=== PATIENT | female | born 1970 | race Caucasian/White ===

== ENCOUNTER 2021-11-02 15:48 | Outpatient (REF) | payer OTHER, SELFPAY | END 2021-11-02 15:49 | disposition home or self-care (01) | LOC: HO.LAB 15:48 | PROVIDERS: Visit Provider Internal Medicine | DX: Z20.822 Contact with and (suspected) exposure to COVID-19 (principal) | CPT/HCPCS: C9803; U0003; U0005 ==

== ENCOUNTER 2024-01-06 17:03 | Emergency (ER) | payer OTHER, SELFPAY ==
[2024-01-06 17:39] VITALS: BP 147/99; BP 154/110; PULSE 80; PULSE 81; RESP 16; TEMP 36.9; O2SAT 96; BMI 33.9
--- NOTE | 2024-01-06 17:44 | ED.GENADULT ---
HPI - General Adult General Chief complaint: Neuro Symptoms/Deficit Stated complaint: headache,migraines,nausea x1wk Time Seen by Provider: 01/06/24 23:12 Source: patient Mode of arrival: EMS History of Present Illness HPI narrative: This is a pleasant 53-year-old female without significant past medical history other than migraines and endorses increase level of stress at work and states that over the past week she has had intermittent episodes of headaches with significant left eye twitching but denies any visual or speech changes denies any numbness/tingling/unilateral weakness. Patient reports that during the headaches she has experienced some nausea and she routinely takes magnesium as well as ibuprofen for her underlying migraine diagnosis and states that the eye twitching is not something that is previously been associated with her migraines. She otherwise denies any fever, chills, vomiting, abdominal discomfort or urinary symptoms. Patient also reports concerns regarding the blood at the lower portion of her left orbit. Related Data Allergies Allergy/AdvReac Type Severity Reaction Status Date / Time No Known Allergies Allergy Verified 01/06/24 17:45 Review of Systems Review of Systems: Pertinent positives and negatives as stated in HPI PMFSH Past Medical History Source: nursing notes reviewed Social History Social History Advance Directives: No Advance Directives Information Provided: Yes Physical Exam ED Vital Signs: Vital Signs - 24 hr 01/06/24 17:39 Temperature 98.4 F Pulse Rate 81 Respiratory Rate 16 Blood Pressure 147/99 H Pulse Oximetry 96 Oxygen Delivery Method Room Air BMI result Body Mass Index 33.9 VITAL SIGNS: Reviewed. GENERAL: Elevated BMI, Well developed, well nourished, in no acute distress. HEAD: Normocephalic/atraumatic EYES: PERRLA, EOMI, small subconjunctival hemorrhage at low lateral aspect of left orbit EARS: Ext canals without abnormality, TMs non-bulging and non-erythematous NOSE: Nares patent bilateral OROPHARYNX: no oral lesions noted, posterior pharynx clear and non-erythematous without noted tonsillar enlargement/erythema/exudates NECK: Supple, no adenopathy LUNGS: Normal breath sounds. No adventitious sounds or accessory muscle use. SpO2<96> CARDIOVASCULAR: Regular rate and rhythm without noted murmurs ABDOMEN: Soft, non-tender, non-distended with bowel sounds. MUSCULOSKELETAL: No tenderness, deformities, or effusions noted on gross inspection. EXTREMITIES: No cyanosis, clubbing or edema. SKIN: Inspection of the skin reveals no rashes NEUROLOGIC: Alert and oriented x 4. Strength and sensation to light touch were grossly intact x 4, no facial asymmetry, no pronator drift, cranial nerves 2-12 are grossly intact. Course Course Course Narrative: RME performed by Darshana Spears PA-C. Patient is a 53 year old assigned female at presenting to the emergency department with left sided facial twitching / slight drooping x days. Detailed physical exam and review of systems are deferred to the pole peeling machine operator. Labs and imaging ordered. Patient placed back in the waiting room pending room availability and results. Medical Decision Making Medical Decision Making MDM Narrative: 53-year-old female with history and clinical presentation, DDX: Migraine, tension headache, idiopathic eyelid twitching, subconjunctival hemorrhage, no focal deficits and history not concerning for neurologic deficits, viral illness, life stressors. I reviewed all investigations and understand that the triage note was neuro is intact patient has slight left-sided droop , I do not appreciate any left-sided facial droop which would not fall under the statements of neuro does being intact. Hematologic indices are negative for leukocytosis/left shift/anemia or thrombocytopenia. Coagulation studies within normal range. Chemistry indices are without any derangement, notably high sensitivity troponin is undetectable, TSH-1.24. Urinalysis demonstrates the presence of wbc's, appears to be a clean sample and also is notable for 1+ bacteria but nitrite and leukocyte esterase negative. Patient has no complaints abdominal/flank discomfort and also denies any urinary symptoms. At this time, I will defer any antibiotics and instead requested patient follow-up on urine culture either through her primary care doctor or through the patient portal. My interpretation is that patient is experiencing idiopathic eye twitching that many times can be associated with increased levels of stress which patient has endorsed in her history. I do not find any symptoms related her history or clinical findings to suggest TIA/CVA. I did explain to the patient that subconjunctival hemorrhages can occur and I strongly recommend that you follow-up with your primary care doctor at her earliest convenience. I will offer the patient Tylenol and also do viral testing. Viral testing is negative for COVID-19/influenza. All results and findings discussed with the patient at bedside she is otherwise discharged home in stable condition and strongly encouraged to follow-up with primary care doctor at her earliest convenience. Differential Diagnosis Differential Diagnoses: The differential diagnosis associated with the presentation includes Please see the discussion above Admission/Observation Consideration of admission/observation: Escalation of care including admission/observation considered Please see the discussion above Lab Data MDM Lab Attestation statement: I reviewed the patient's lab results. Please see the discussion above 01/06/24 18:31 01/06/24 18:31 Labs: Lab Results 01/06/24 01/07/24 Range/Units 18:31 00:00 WBC 8.1 (4.8-10.8) X10*3/uL RBC 4.64 (4.20-5.50) X10*6/uL Hgb 13.1 (12.0-16.0) g/dl Hct 39.5 (37.0-47.0) % MCV 85.1 (80.0-98.0) fL MCH 28.2 (27.0-33.0) pg MCHC 33.2 (31.0-35.0) g/dl RDW 13.3 (11.0-16.0) % Plt Count 297 (160-400) X10*3/uL MPV 9.3 L (9.4-12.3) fL Immature Gran % (Auto) 0.2 (0.0-0.4) % Neut % (Auto) 62.0 (45-73) % Lymph % (Auto) 31.6 (20-40) % [place] % (Auto) 5.3 (2-11) % Eos % (Auto) 0.5 (0-4) % Baso % (Auto) 0.4 (0-2) % Lymph # (Auto) 2.6 (1.2-4.9) X10*3/uL [place] # (Auto) 0.4 (0.1-1.2) X10*3/uL Eos # (Auto) 0.0 (0.0-0.4) X10*3/uL Baso # (Auto) 0.0 (0.0-0.2) X10*3/uL Abs Immat Gran (auto) 0.02 (0.00-0.03) X10*3/uL Absolute Neuts (auto) 5.0 (2.0-8.3) x10*3/uL Absolute Nucleated RBC 0.000 (0.0-0.012) X10*3/uL Nucleated RBC % (auto) 0.0 (0.0-0.2) /100WBC PT 13.2 (11.1-13.3) SEC INR 1.1 (0.9-1.1) APTT 29.2 (26.0-36.8) SEC Sodium 137 (135-145) mmol/L Potassium 3.4 (3.3-5.1) mmol/L Chloride 103 (96-108) mmol/L Carbon Dioxide 23 (22-29) mmol/L Anion Gap 14 (12-20) BUN 11 (9-16) mg/dL Creatinine 0.62 (0.5-1.4) mg/dL Estim Creat Clear Calc 99.5 Estimated GFR > 60 Random Glucose 80 (60-115) mg/dL Calcium 9.6 (8.4-10.2) mg/dL Magnesium 2.0 (1.6-2.6) mg/dL Total Bilirubin 0.3 (0.0-1.0) mg/dL AST 16 (5-31) U/L ALT 22 (0-31) U/L Alkaline Phosphatase 80 (39-117) U/L Troponin I High Sens < 2.7 (<3.5-17.0) ng/L Total Protein 7.6 (6.5-8.0) g/dL Albumin 4.2 (3.5-5.0) g/dL TSH 1.24 (0.32-4.0) uIU/mL Urine Color Yellow Urine Appearance Clear Urine pH 6.5 (5.0-9.0) Ur Specific Bishop 1.010 (1.005-1.025) Urine Protein Negative (Neg-Trace) mg/dL Urine Glucose (UA) Negative (Negative) mg/dL Urine Ketones Negative (Negative) mg/dL Urine Blood Trace H (Negative) Urine Nitrite Negative (Negative) Ur Leukocyte Esterase Negative (Negative) Urine RBC 6-10 H (0-2) /HPF Urine WBC 6-10 H (0-5) /HPF Ur Squamous Epith Cells 0-2 (0-2) /HPF Urine Bacteria 1+ (None Seen) Hyaline Casts 0-2 (0-2) /LPF COVID-19 ([facility]) Negative (Negative) COVID-19 Clin Com See Note Influenza Type A ([facility]) Negative (Negative) Influenza Type B ([facility]) Negative (Negative) Influenza A & B Note See Note Independent Interpretation I performed an independent interpretation of an: EKG Interpretation: Normal sinus rhythm, HR-71, no STEMI, NE/QRS/QTC is within normal limits Chronic Conditions Patient?s care impacted by: Other Migraine Critical Care Time Critical Care Time Critical Care Time: Yes Total Critical Care Time: 30 Attestation: I personally attest to this time spent taking care of the patient. Discharge Plan Discharge Clinical Impression: Subconjunctival bleed, Eyelid twitch, Tension headache Patient Disposition: Home, Self-Care Instructions: Tension Headache (ED), Subconjunctival Hemorrhage (ED) Additional Instructions: 1. Resume all home medications as prescribed. I do recommend some form of relaxation technique throughout your work day to help deescalate the stress that you are currently undergoing. 2. Please follow-up with your primary care doctor in the next 1-2 days. Do not hesitate to return to the emergency room for any worsening or new symptoms. Referrals: Esthela Hernandez PA [Primary Care Provider] -
--- NOTE | 2024-01-06 17:46 | ECG_ITS ---
Test Reason : HEADACHE/POSS STROKE Blood Pressure : / mmHG Vent. Rate : 071 BPM Atrial Rate : 071 BPM P-R Int : 150 ms QRS Dur : 076 ms QT Int : 424 ms P-R-T Axes : 054 028 042 degrees QTc Int : 460 ms Normal sinus rhythm with sinus arrhythmia Normal ECG No previous ECGs available Referred By: Darshana Spears Electronically Signed By:Piter Mccann
[2024-01-06 18:35] LABS: MANUAL DIFF FLAG NO
[2024-01-06 18:38] LABS: Appearance Urine Clear; Basophils Percent Auto 0.4 % (0-2); Color Urine Yellow; Eosinophils Percent Auto 0.5 % (0-4); Glucose Urine UA Negative (Negative); Hematocrit 39.5 % (37.0-47.0); Hemoglobin 13.1 g/dl (12.0-16.0); Imm Gran Abs Auto 0.02 X10*3/uL (0.00-0.03); Imm Gran Pct Auto 0.2 % (0.0-0.4); Leukocyte Esterase Urine Negative (Negative); Lymphocytes Absolute Auto 2.6 X10*3/uL (1.2-4.9); Lymphocytes Percent Auto 31.6 % (20-40); Mean Corpuscular HGB Conc 33.2 g/dl (31.0-35.0); Mean Corpuscular Hemoglobin 28.2 pg (27.0-33.0); Mean Corpuscular Volume 85.1 fL (80.0-98.0); Mean Platelet Volume 9.3 fL (9.4-12.3); Monocytes Absolute Auto 0.4 X10*3/uL (0.1-1.2); Monocytes Percent Auto 5.3 % (2-11); Nitrite Urine Negative (Negative); PH 6.5 (5.0-9.0); Platelet Count 297 X10*3/uL (160-400); Red Blood Count 4.64 X10*6/uL (4.20-5.50); Red Cell Distribution Width 13.3 % (11.0-16.0); UMIC TRIGGER UACC YES; Urine Blood Trace (Negative); Urine Ketones Negative (Negative); Urine Protein Negative (Neg-Trace); White Blood Count 8.1 X10*3/uL (4.8-10.8)
[2024-01-06 18:42] LABS: INTERNATIONAL NORM RATIO 1.1 (0.9-1.1); Prothrombin Time 13.2 SEC (11.1-13.3)
[2024-01-06 18:45] LABS: Partial Thromboplastin Time 29.2 SEC (26.0-36.8)
[2024-01-06 18:51] LABS: Alanine Aminotransferase 22 U/L (0-31); Albumin Level 4.2 g/dL (3.5-5.0); Alkaline Phosphatase 80 U/L (39-117); Anion Gap 14 (12-20); Aspartate Amino Transferase 16 U/L (5-31); Bilirubin Total 0.3 mg/dL (0.0-1.0); Blood Urea Nitrogen 11 mg/dL (9-16); Calcium 9.6 mg/dL (8.4-10.2); Carbon Dioxide 23 mmol/L (22-29); Chloride 103 mmol/L (96-108); Creatinine Clr Calc Pharmacy 99.5; Estimated Glomerular Filt Rate > 60; Glucose Random 80 mg/dL (60-115); Potassium 3.4 mmol/L (3.3-5.1); Sodium 137 mmol/L (135-145); Total Protein 7.6 g/dL (6.5-8.0)
[2024-01-06 18:58] LABS: Troponin-I High Sensitivity < 2.7 ng/L (<3.5-17.0)
[2024-01-06 19:11] LABS: TSH reflex Free T4 1.24 uIU/mL (0.32-4.0)
[2024-01-06 19:50] LABS: Bacteria Urine 1+ (None Seen); Hyaline Casts Urine 0-2 /LPF (0-2); Squamous Epithelial Cell Urine 0-2 /HPF (0-2); UACC Culture Trigger YES
--- OUTSIDE RECORDS SUMMARY | 2024-01-06 23:42 | XMS_ITS | Continuity of Care Document ---
Author Name Unknown Organization [facility] Adult Address [address] [place] [address]- Care Team Providers Care Doctorate Of Chiropractic Name Role Phone Ehsan VALLECILLO, Priyanka aMrtin Primary Care Physician Encounter [facility] [place] Date(s): 05/03/21 - 06/02/21 [facility] Adult [address] [place] [address]- Allergies, Adverse Reactions, Alerts Substance Reaction Severity Status NKA Active Immunizations Given and Recorded Vaccine Date Status Refusal Reason SARS-CoV-2 (COVID-19) mRNA BNT-162b2 vac 04/11/21 Recorded SARS-CoV-2 (COVID-19) mRNA BNT-162y9 vac 03/21/21 Recorded influenza virus vaccine, inactivated 1 12/16/15 Gi km tetanus/diphtheria/pertussis, acel(Tdap) 2 03/25/13 Given 1Admin Note: Declined 2Admin Note: VIS 12/18/2011 Medications Multivitamin Daily, 0 Refills, Maintenance, 01/15/20 8:04:00 EST Start Date: 01/15/20 Status: Ordered peak performance pack peak performance pack, Refills 0, Maintenance, 01/15/20 8:04:00 EST, Compound Start Date: 01/15/20 Status: Ordered propranolol 80 mg oral capsule, extended release 80 mg, 1, capsule, By Mouth, Daily at supper, # 30 capsule, Refills 6, Tot. Refills 6, Maintenance,02/10/21 9:06:00 EDT, Route to Pharmacy Electronically, [facility]/pharmacy #[id number], dose increase, 151.7, cm, 07/18/20 17:52:00 EDT, Height, 80.3, kg, 03/06/19... Start Date: 02/10/21 Stop Date: 09/08/21 Status: Ordered Problem List Condition Effective Dates Status Health Status Inform ant Adjustment disorder with anx ious mood(Confirmed) Active Advanced maternal age(Confirmed) Active Brain concussion(Confirmed) 11/22/11 Active Elevated BP(Confirmed) Active Family history of diabetes m ellitus type 2(Confirmed) Active Heavy periods(Confirmed) Active Migraine headache(Confirmed) Active Brain injury(Confirmed) 1 08/30/04 Active Uterine fibroid(Confirmed) Active 1Exposure to varnish fumes at work
--- OUTSIDE RECORDS SUMMARY | 2024-01-06 23:42 | XMS_ITS | Continuity of Care Document ---
Author Name Unknown Organization [facility] Adult Address [address] [place] [address]- Care Team Providers Care Thickener Operator Name Role Phone Esthela Lomeli Primary Care Physician Encounter [facility] [place] Date(s): 09/04/23 - 10/04/23 [facility] Adult [address] [place] [address]- Allergies, Adverse Reactions, Alerts Substance Reaction Severity Status Other Environmental Allergy dogs, pollen Active Immunizations Given and Recorded Vaccine Date Status Refusal Reason SARS-CoV-2 (COVID-19) mRNA BNT-162b2 vac 04/11/21 Recorded SARS-CoV-2 (COVID-19) mRNA BNT-162b2 vac 03/21/21 Recorded influenza virus vaccine, inactivated 1 12/16/15 Gi km tetanus/diphtheria/pertussis, acel(Tdap) 2 03/25/13 Given 1Admin Note: Declined 2Admin Note: VIS 12/18/2011 Medications Ativan 0.5 mg oral tablet 1 tablet = 0.5 mg, By Mouth, Daily, PRN as needed for anxiety, # 14 tablet, 0 Refills, Acute 10/06/23 8:23:00 EST, 09/05/23 8:22:00 EDT, Tablet, [facility]/pharmacy #[id number], Partial fill upon patient request if the prescription is for a schedule II opioid drug... Start Date: 09/05/23 Stop Date: 10/06/23 Status: Ordered BuPROPion (Eqv-Wellbutrin SR) 150 mg/12 hours oral tablet, extended release 1 tablet, By Mouth, 2 times a day, # 180 Unknown, 1 Refills, Maintenance, 05/20/23 19:33:00 EDT, [id number], 149.86, cm, 04/10/23 6:49:00 EDT, Height, 75.1, kg, 04/10/23 6:49:00 EDT, Dry Weight Start Date: 05/20/23 Status: Ordered prazosin 1 mg oral capsule 1, capsule, By Mouth, Daily at bedtime, PRN, # 30 capsule, Refills 1, Maintenance, NEEDED, 04/24/23 11:38:00 EDT, Route to Pharmacy Electronically, [id number], 149.86, cm, 04/10/23 6:49:00 EDT, Height, 75.1, kg, 04/10/23 6:49:00 EDT, Dry Weight Start Date: 04/24/23 Status: Ordered sertraline 25 mg oral tablet 1 tablet = 25 mg, By Mouth, Daily, Take 1 tablet by mouth daily in addition to 50 mg tablet totaling 75 mg daily, # 90 tablet, 0 Refills, Maintenance, 09/05/23 8:25:00 EDT, Tablet, [facility]/pharmacy #[id number], Partial fill upon patient request if the prescript... Start Date: 09/05/23 Status: Ordered sertraline 50 mg oral tablet 1 tablet = 50 mg, By Mouth, Daily, # 90 tablet, 0 Refills, Maintenance, 07/09/23 9:49:00 EDT, Tablet, [facility]/pharmacy #[id number], Partial fill upon patient request if the prescription is for a schedule II opioid drug., 149.86, cm, 04/10/23 6:49:00 EDT, Height... Start Date: 07/09/23 Stop Date: 07/09/24 Status: Ordered Problem List Condition Confirmation Course Effective Dates Status Health St atus Informant Adjustment disorder with anxious mood Confirmed Active Advanced maternal age Confirmed Active Brain concussion Confirmed 11/22/11 Active Elevated BP Confirmed Active Family history of diabetes mellitus type 2 Confirmed Active Heavy periods Confirmed Active Rotator cuff tendinitis Confirmed Active Insomnia Confirmed Active Migraine headache Confirmed Active Obese class I Confirmed Active Depression, major, recurrent, moderate Confirmed Active Brain injury 1 Confirmed 08/30/04 Active Uterine fibroid Confirmed Active 1Exposure to varnish fumes at work Social History Social History Type Response Smoking Status Never (less than 100 in lifetime) entered on: 06/20/21 Sex Patient Care team information Care Team Personnel Name: Esthela Lomeli Position: [facility] PCO Associate Professional Member Role: PCP Address: Address: [address] [place] [address]. [address] [place] [address]- Care Team Related Persons Name: BASILIO MALCOLM Address: home [address] [place] [address] Name: DAKOTA GUZMAN Address: [address] [address] Name: SUDHA GUZMAN Address: home [address] [place] [id number]
--- OUTSIDE RECORDS SUMMARY | 2024-01-06 23:42 | XMS_ITS | Continuity of Care Document ---
Author Name Unknown Organization [facility] Adult Address [address] [place] [address]- Care Team Providers Care Tennis Desk Team Member Name Role Phone Esthela Lomeli Primary Care Physician Encounter [facility] [place] Date(s): 12/02/23 - 01/01/24 [facility] Adult [address] [place] [address]- Allergies, Adverse Reactions, Alerts Substance Reaction Severity Status Other Environmental Allergy dogs, pollen Active Immunizations Given and Recorded Vaccine Date Status Refusal Reason SARS-CoV-2 (COVID-19) mRNA BNT-162b2 vac 04/11/21 Recorded SARS-CoV-2 (COVID-19) mRNA BNT-162b8 vac 03/21/21 Recorded influenza virus vaccine, inactivated 1 12/16/15 Gi km tetanus/diphtheria/pertussis, acel(Tdap) 2 03/25/13 Given 1Admin Note: Declined 2Admin Note: VIS 12/18/2011 Medications BuPROPion (Eqv-Wellbutrin SR) 150 mg/12 hours oral tablet, extended release 1 tablet, By Mouth, 2 times a day, # 180 Unknown, 1 Refills, Maintenance, 05/20/23 19:33:00 EDT, [id number], 149.86, cm, 04/10/23 6:49:00 EDT, Height, 75.1, kg, 04/10/23 6:49:00 EDT, Dry Weight Start Date: 05/20/23 Status: Ordered prazosin 1 mg oral capsule 1, capsule, By Mouth, Daily at bedtime, PRN, # 30 capsule, Refills 1, Maintenance, NEEDED, 04/24/23 11:38:00 EDT, Route to Pharmacy Electronically, [facility] [id number], 149.86, cm, 04/10/23 6:49:00 EDT, Height, 75.1, kg, 04/10/23 6:49:00 EDT, Dry Weight Start Date: 04/24/23 Status: Ordered sertraline 25 mg oral tablet 1 tablet, By Mouth, Daily, # 90 tablet, 0 Refills, Maintenance, 12/02/23 9:05:00 EST, [facility], 149.66, cm, 10/09/23 14:54:00 EST, Height, 75.1, kg, 04/10/23 6:49:00 EDT, Dry Weight Start Date: 12/02/23 Status: Ordered Problem List Condition Confirmation Course [...] Care Team Personnel Name: Esthela Lomeli Position: [facility] PCO Associate Professional Member Role: PCP Address: Address: [address] [place] [address]. [address] [place] [address]- Care Team Related Persons Name: BASILIO MALCOLM Address: [address] [place] [address] Name: DAKOTA GUZMAN Address: [address] [address] Name: SUDHA GUZMAN Address: home [address] [place] [address]
--- OUTSIDE RECORDS SUMMARY | 2024-01-06 23:42 | XMS_ITS | Continuity of Care Document ---
Author Name Unknown Organization [facility] Address [address] [place] [address]- Care Team Providers Care Thermostat Repairer Name Role Phone Ehsan VALLECILLO, Priyanka Martin Primary Care Physician Encounter [facility] [place] [place] Date(s): 01/13/20 - 04/08/[address] [address] Attending Physician: Nader KELSEY, Patricia Moreno Admitting Physician: Patricia Doe MD Referring Physician: Ehsan VALLECILLO, Priyanka Martin Allergies, Adverse Reactions, Alerts Substance Reaction Severity Status NKA Active Immunizations Given and Recorded Vaccine Date Status Refusal Reason influenza virus vaccine, inactivated 1 12/16/15 Gi km tetanus/diphtheria/pertussis, acel(Tdap) 2 03/25/13 Given 1Admin Note: Declined 2Admin Note: VIS 12/18/2011 Medications magnesium magnesium, Refills 0, Maintenance, 08/12/19 18:28:35 EDT, Compound Start Date: 08/12/19 Status: Ordered Multivitamin Daily, 0 Refills, Maintenance, 01/15/20 8:04:00 EST Start Date: 01/15/20 Status: Ordered naratriptan 1 mg oral tablet 1 tablet = 1 mg, By Mouth, Daily, PRN for migraine headache, may repeat dose once in 4 hours. Take at onset of a migraine headaches ., # 9 tablet, 1 Refills, Acute 01/15/21 8:16:00 EST, 01/15/20 8:16:00 EST, [facility]t, [id number], tried sum... Start Date: 01/15/20 Stop Date: 01/15/21 Status: Ordered peak performance pack peak performance pack, Refills 0, Maintenance, 01/15/20 8:04:00 EST, Compound Start Date: 01/15/20 Status: Ordered riboflavin 100 mg oral tablet 2 tablet = 200 mg, By Mouth, 2 times a day with meals, # 120 tablet, 5 Refills, Maintenance, 08/03/19 9:34:21 EDT Start Date: 08/03/19 Stop Date: 01/30/20 Status: Ordered Problem List Condition Effective Dates [...]
--- OUTSIDE RECORDS SUMMARY | 2024-01-06 23:42 | XMS_ITS | Continuity of Care Document ---
Author Name Unknown Organization [facility] Adult Address [address] [place] [address]- Care Team Providers Care Upper Leather Cutter Name Role Phone Lukasz VALLECILLO, Shelley Primary Care Physician [phone] Encounter [facility] [place] Date(s): 07/05/23 - 08/04/23 [facility] Adult [address] [place] [address]- Allergies, Adverse Reactions, Alerts Substance Reaction Severity [...] Unknown, 1 Refills, Maintenance, 05/20/23 19:33:00 EDT, [facility]13, 149.86, cm, 04/10/23 6:49:00 EDT, Height, 75.1, kg, 04/10/23 6:49:00 EDT, Dry Weight Start Date: 05/20/23 Status: Ordered prazosin 1 mg oral capsule 1, capsule, By Mouth, Daily at bedtime, PRN, # 30 capsule, Refills 1, Maintenance, NEEDED, 04/24/23 11:38:00 EDT, Route to Pharmacy Electronically, [facility] 88680, 149.86, cm, 04/10/23 6:49:00 EDT, Height, 75.1, kg, 04/10/23 6:49:00 EDT, Dry Weight Start Date: 04/24/23 Status: Ordered sertraline 50 mg oral tablet 1 tablet = 50 mg, By Mouth, Daily, # 90 tablet, 0 Refills, Maintenance, 07/09/23 9:49:00 EDT, [facility]t, [id number], Partial fill upon patient request if [...] Care team information Care Team Personnel Name: Shelley Lal NP Position: S PCO Associate Professional Member Role: PCP Address: Address: [address] [place] [address], [address] [place], [place] [address] Care Team Related Persons Name: BASILIO MALCOLM Address: [address] [place] [address] Name: DAKOTA GUZMAN Address: [address] [address] Name: SUDHA GUZMAN Address: home [address] [place] [address]
--- OUTSIDE RECORDS SUMMARY | 2024-01-06 23:42 | XMS_ITS | Continuity of Care Document ---
Author Name Unknown Organization [facility] Adult Address [address] [place] [address]- Care Team Providers Care What Job Titles Mean Name Role Phone David VALLECILLO, Jesica Saez Primary Care Physicia n [id number] Date(s): 07/07/21 - 08/12/21 [facility] Adult [address] [place] [address]- Attending Physician: Ehsan VALLECILLO, Priyanka Martin Allergies, Adverse Reactions, Alerts Substance Reaction Severity Status NKA Active Immunizations Given and Recorded Vaccine Date Status Refusal Reason SARS-CoV-2 (COVID-19) mRNA BNT-162b2 vac 04/11/21 Recorded SARS-CoV-2 (COVID-19) mRNA BNT-162b2 vac 03/21/21 Recorded influenza virus vaccine, inactivated 1 12/16/15 Gi km tetanus/diphtheria/pertussis, acel(Tdap) 2 03/25/13 Given 1Admin Note: Declined 2Admin Note: VIS 12/18/2011 Medications Miscellaneous Rx Glutathiazone 1000mg, By Mouth, Daily, 0 Refills, Maintenance, 06/21/21 11:54:00 EDT Start Date: 06/21/21 Status: Ordered Miscellaneous Rx querectine 20mg, By Mouth, Daily, 0 Refills, Maintenance, 06/21/21 11:55:00 EDT Start Date: 06/21/21 Status: Ordered peak performance pack peak performance pack, By Mouth, 2 times a day, Refills 0, Maintenance, 01/15/20 8:04:00 EST, Compound Start Date: 01/15/20 Status: Ordered propranolol 120 mg oral capsule, extended release 1 capsule = 120 mg, By Mouth, Daily, do not crush or chew Dose increase, # 30 capsule, 5 Refills, Maintenance, 06/08/21 11:16:00 EDT, CR Capsule, [id number], d[facility]c prior script, 151, cm, 05/04/21 16:27:00 EDT, Height Start Date: 06/08/21 Stop Date: 12/05/21 Status: Ordered Problem List Condition Effective Dates [...]
--- OUTSIDE RECORDS SUMMARY | 2024-01-06 23:42 | XMS_ITS | Continuity of Care Document ---
Author Name Unknown Organization [facility] Address [address] [facility], [address] d Floor, [address] [place] [address]- Care Team Providers Care Windows Migration Technician Name Role Phone Ehsan VALLECILLO, Priyanka Martin Primary Care Physician Encounter [facility] [place] Date(s): 08/15/19 - 12/13/19 [facility] [address], 3[address] Floor, [address] [place] [address] [facility] Attending Physician: Becky Thayer NP Admitting Physician: Becky Thayer NP Allergies, Adverse Reactions, Alerts Substance Reaction Severity Status NKA Active Immunizations Given and Recorded Vaccine Date Status Refusal Reason influenza virus vaccine, inactivated 1 12/16/15 Gi km tetanus/diphtheria/pertussis, acel(Tdap) 2 03/25/13 Given 1Admin Note: Declined 2Admin Note: VIS 12/18/2011 Medications Diflucan 150 mg oral tablet 1 tablet = 150 mg, By Mouth, Once, # 1 tablet, 0 Refills, Soft Stop, 10/01/19 9:29:06 EST, Tablet Start Date: 10/01/19 Status: Ordered magnesium magnesium, Refills 0, Maintenance, 08/12/19 18:28:35 EDT, Compound Start Date: 08/12/19 Status: Ordered riboflavin 100 mg oral tablet 2 tablet = 200 mg, By Mouth, 2 times a day with meals, # 120 tablet, 5 Refills, Maintenance, 08/03/19 9:34:21 EDT Start Date: 08/03/19 Stop Date: 01/30/20 Status: Ordered SUMAtriptan 50 mg oral tablet 1 tablet = 50 mg, By Mouth, Daily, PRN for migraine headache, may repeat dose after 2 hours up to amaximum of 2, # 18 tablet, 5 Refills, Maintenance, 02/24/19 11:24:04 EDT, Tablet Start Date: 02/24/19 Stop Date: 04/25/19 Status: Ordered Topamax 25 mg oral tablet 1 tablet = 25 mg, By Mouth, Daily, # 30 tablet, 3 Refills, Maintenance, 02/24/19 11:23:21 EDT Start Date: 02/24/19 Stop Date: 06/24/19 Status: Ordered vitamin B2 vitamin B2, Refills 0, Maintenance, 08/12/19 18:28:59 EDT, Compound Start Date: 08/12/19 Status: Ordered Problem List Condition Effective Dates [...]
--- OUTSIDE RECORDS SUMMARY | 2024-01-06 23:42 | XMS_ITS | Continuity of Care Document ---
Author Name Unknown Organization [facility] Address [address] [place] [address]- Care Team Providers Care Real Estate Intern Name Role Phone David VALLECILLO, Jesica Saez Primary Care Physicia n Encounter [facility] [place] ACCT R [id number] Date(s): 12/19/21 - 01/18/22 [facility] [address] [place] [address]- Attending Physician: Columba Arana Admitting Physician: Columba Arana Referring Physician: Columba Arana Referring Physician: Lu Lira Allergies, Adverse Reactions, Alerts No Known Allergies Immunizations Given and Recorded Vaccine Date Status [...] ellitus type 2(Confirmed) Active Heavy periods(Confirmed) Active Rotator cuff tendinitis(Confirmed) Active Migraine headache(Confirmed) Active Obese class I(Confirmed) Active 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
--- OUTSIDE RECORDS SUMMARY | 2024-01-06 23:42 | XMS_ITS | Continuity of Care Document ---
Author Name Unknown Organization [facility] Address [address] [place] [address]- Care Team Providers Care Field Technical Specialist Name Role Phone Ehsan VALLECILLO, Priyanka Martin Primary Care Physician Encounter [facility] [place] Date(s): 06/09/21 - 06/16/21 [facility] [address] [place] [address]- Encounter Diagnosis Adverse reaction to vaccine(Discharge Diagnosis) - 06/09/21 Adjustment disorder with anxious mood(Discharge Diagnosis) - 06/09/21 Attending Physician: Andrew Martinez MD Referring Physician: David VALLECILLO, Jesica Saez Allergies, Adverse Reactions, Alerts Substance Reaction Severity [...] Maintenance, 06/08/21 11:16:00 EDT, CR Capsule, [id number], d/c prior script, 151, cm, 05/04/21 16:27:00 [...] Active 1Exposure to varnish fumes at work Diagnosis Diagnosis Type Effective Dates Health Status Clinical Service Informant Adverse reaction to vaccine Discharge Diagnosis 06/09/21 Adjustment disorder with anxious mood Discharge Diagnosis 06/09/21 Vital Signs Most recent to oldest [Reference Range]: 1 Height 151 cm (06/09/21 11:27 AM)
--- OUTSIDE RECORDS SUMMARY | 2024-01-06 23:42 | XMS_ITS | Continuity of Care Document ---
Author Name Unknown Organization [facility] Address [address] [facility], 3[address] Floor, [address] [place] [address]- Care Team Providers Care Laundry Manager Name Role Phone Ehsan VALLECILLO, Priyanka Martin Primary Care Physician Encounter [place] Date(s): 05/03/21 - 06/02/21 [facility] [address], [address] Floor, [address] [place] [id number] Allergies, Adverse Reactions, Alerts Substance Reaction Severity Status NKA Active Immunizations Given and Recorded Vaccine Date Status Refusal Reason SARS-CoV-2 (COVID-19) mRNA BNT-162b2 vac 04/11/21 Recorded SARS-CoV-2 (COVID-19) mRNA BNT-162y8 vac 03/21/21 Recorded influenza virus vaccine, inactivated [...] Maintenance,02/10/21 9:06:00 EDT, Route to Pharmacy Electronically, [facility]/pharmacy #[id number], dose increase, 151.7, cm, 07/18/20 17:52:00 EDT, [...]
--- OUTSIDE RECORDS SUMMARY | 2024-01-06 23:42 | XMS_ITS | Continuity of Care Document ---
Author Name Unknown Organization [facility] Adult Address [address] [place] [address]- Care Team Providers Care Mobile Ui Developer Name Role Phone Ehsan VALLECILLO, Priyanka Martin Primary Care Physician Encounter [facility] [place] Date(s): 06/30/21 - 07/07/21 [facility] [address] [place] [address]- Encounter Diagnosis Adjustment disorder with anxious mood(Discharge Diagnosis) - 06/30/21 Edema, retina(Discharge Diagnosis) - 06/30/21 Attending Physician: Not on Staff, Attending MD Allergies, Adverse Reactions, Alerts Substance Reaction Severity [...] Effective Dates Health Status Clinical Service Informant Adjustment disorder with anxious mood Discharge Diagnosis 06/30/21 Edema, retina Discharge Diagnosis 06/30/21 Vital Signs Most recent to oldest [Reference Range]: 1 Height 152.2 cm (06/30/21 12:38 PM) Social History Social History Type Response Smoking Status Never (less than 100 in lifetime) entered on: 06/20/21 Sex
--- OUTSIDE RECORDS SUMMARY | 2024-01-06 23:42 | XMS_ITS | Continuity of Care Document ---
Author Name Unknown Organization [facility] Address [address] [facility], [address] Floor, [address] [place] [address]- Care Team Providers Care Webbing Inspector Name Role Phone Ehsan INVESTOR RELATIONS COORDINATOR, Priyanka Martin Primary Care Physician [place] [facility] [place]s): 02/10/21 - 03/12/21 [facility] [address], [address] Floor, [address] [place] [address] Allergies, Adverse Reactions, Alerts Substance Reaction [...] Maintenance,02/10/21 9:06:00 EDT, Route to Pharmacy Electronically, [facility]/pharmacy #[id number], dose increase, 151.7, cm, 07/18/20 17:52:00 EDT, Height, 80.3, kg, 03/06/19... 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
--- OUTSIDE RECORDS SUMMARY | 2024-01-06 23:42 | XMS_ITS | Continuity of Care Document ---
Author Name Unknown Organization [facility] Address [address] [place] [address]- Care Team Providers Care Technology Recruiter Name Role Phone Lukasz VALLECILLO, Shelley Primary Care Physician Encounter [facility] [place] Date(s): 02/20/23 - 05/11/23 [facility] Adult [address] [place] [address]- Attending Physician: Esthela Lomeli Allergies, Adverse Reactions, Alerts Substance Reaction Severity [...] By Mouth, 2 times a day, # 60 Unknown, 5 Refills, Maintenance, 11/07/22 9:56:00 EST, [facility]/pharmacy #[id number], 152.2, cm, 11/01/22 9:27:00 EST, Height, 73, kg, 06/21/21 10:58:00 EDT, Dry Weight Start Date: 11/07/22 Status: Ordered prazosin 1 mg oral capsule 1, capsule, By Mouth, Daily at bedtime, PRN, # 30 capsule, Refills 1, Maintenance, NEEDED, 04/24/23 11:38:00 EDT, Route to Pharmacy Electronically, [facility] STORE [id number], 149.86, cm, 04/10/23 6:49:00 EDT, Height, 75.1, kg, 04/10/23 6:49:00 EDT, Dry Weight Start Date: 04/24/23 Status: Ordered Problem List Condition Confirmation Course [...] Associate Professional Member Role: PCP Address: Address: [address] [place] [address], 3rd [place] [address]- Care Team Related Persons Name: BASILIO MALCOLM Address: home [address] [place] [address] Name: DAKOTA GUZMAN Address: home [address] [address] Name: SUDHA GUZMAN Address: home [address] [place] [address]
--- OUTSIDE RECORDS SUMMARY | 2024-01-06 23:42 | XMS_ITS | Continuity of Care Document ---
Author Name Unknown Organization [facility] Address [address] [place] [address]- Care Team Providers Care Video Tape Transferrer Name Role Phone Ehsan WEB SPECIALIST, Priyanka Martin Primary Care Physician Encounter [facility] [place] Date(s): 07/14/21 - 07/21/21 [facility] [address] [place] [address]- Encounter Diagnosis Adjustment disorder with anxious mood(Discharge Diagnosis) - 07/14/21 Retinal edema of left eye(Discharge Diagnosis) - 07/14/21 Attending Physician: David VALLECILLO, Jesica Saez Referring Physician: Andrew Martinez MD Allergies, Adverse Reactions, Alerts Substance Reaction [...] Maintenance, 06/08/21 11:16:00 EDT, CR [facility], [id number], d/c prior script, 151, cm, 05/04/21 16:27:00 [...] Adjustment disorder with anxious mood Discharge Diagnosis 07/14/21 Retinal edema of left eye Discharge Diagnosis 07/14/21 Vital Signs Most recent to oldest [Reference Range]: 1 Height 152.2 cm (07/14/21 8:23 AM) Social History Social History Type Response Smoking Status Never (less than 100 in lifetime) entered on: 06/20/21 Sex
--- OUTSIDE RECORDS SUMMARY | 2024-01-06 23:42 | XMS_ITS | Continuity of Care Document ---
Author Name Unknown Organization [facility] Adult Address [address] [place] [address]- Care Team Providers Care Certification Officer Name Role Phone Shelley Lal NP Primary Care Physician [phone] [place] [facility] [place] [id number] Date(s): 09/19/22 - 12/30/22 [facility] [address] [place] [address]- Attending Physician: Shelley Lal NP Allergies, Adverse Reactions, Alerts No Known Allergies [...] Unknown, 5 Refills, Maintenance, 11/07/22 9:56:00 EST, [id number], 152.2, cm, 11/01/22 9:27:00 EST, Height, 73, kg, 06/21/21 10:58:00 EDT, Dry Weight Start Date: 11/07/22 Status: Ordered Miscellaneous Rx Glutathiazone 1000mg, By Mouth, Daily, [...] Date: 12/05/21 Status: Ordered Problem List Condition Confirmation Course [...] Associate Professional Member Role: PCP Address: Address: [address] [place] [address], 3rd [address] [place], [place] [address] Care Team Related Persons Name: BASILIO MALCOLM Address: [address] [place] [address] Name: DAKOTA GUZMAN Address: [address] [address] Name: SUDHA BOSWELL Address: home [address] [place] [address]
--- OUTSIDE RECORDS SUMMARY | 2024-01-06 23:42 | XMS_ITS | Continuity of Care Document ---
Author Name Unknown Organization [facility] Adult Address [address] [place] [address]- Care Team Providers Care Folder Machine Operator Name Role Phone David NUNEZ, Esthela Servin Primary Care Physician [place] [facility] [place] Date(s): 10/09/23 - 10/16/23 [facility] [address] [place] [address]- Encounter Diagnosis Depression, major, recurrent, moderate(Discharge Diagnosis) - 10/09/23 Adjustment disorder with anxious mood(Discharge Diagnosis) - 10/09/23 Insomnia(Discharge Diagnosis) - 10/09/23 Attending Physician: Esthela Lomeli Allergies, Adverse Reactions, [...] Refills, Maintenance, 05/20/23 19:33:00 EDT, [id number], 149.86, cm, 04/10/23 6:49:00 EDT, Height, 75.1, kg, 04/10/23 6:49:00 EDT, Dry Weight Start Date: 05/20/23 Status: Ordered prazosin 1 mg oral capsule 1, capsule, By Mouth, Daily at bedtime, PRN, # 30 capsule, Refills 1, Maintenance, NEEDED, 04/24/23 11:38:00 EDT, Route to Pharmacy Electronically, [facility] STORE 02649, 149.86, cm, 04/10/23 6:49:00 EDT, Height, 75.1, kg, 04/10/23 6:49:00 EDT, Dry Weight Start Date: 04/24/23 Status: Ordered sertraline 25 mg oral tablet 1 tablet = 25 mg, By Mouth, Daily, Take 1 tablet by mouth daily in addition to 50 mg tablet totaling 75 mg daily, # 90 tablet, 0 Refills, Maintenance, 09/05/23 8:25:00 EDT, Tablet, [facility]/pharmacy #[id number], Partial fill upon patient request if the prescript... Start Date: 09/05/23 Status: Ordered sertraline 50 mg oral tablet 1 tablet = 50 mg, By Mouth, Daily, # 90 tablet, 1 Refills, Maintenance, 07/09/24 9:50:00 EDT, Tablet, [facility]/pharmacy #[id number], Partial fill upon patient request if the prescription is for a schedule II opioid drug., 149.66, cm, 10/09/23 14:54:00 ESTMaldonado... Start Date: 07/09/24 Status: Ordered sertraline 50 mg oral tablet 1 tablet = 50 mg, By Mouth, Daily, # 90 tablet, 0 Refills, Hard Stop 07/09/24 9:50:00 EDT, :49:00 EDT, Tablet, [facility]/pharmacy #[id number], Partial fill upon patient request if the prescription is for a schedule II opioid drug., 149.86, cm, 04/10/23... Start Date: 07/09/23 Stop Date: 07/09/24 Status: [...] Effective Dates Health Status Clinical Service Informant Depression, major, recurrent, moderate Discharge Diagnosis 10/09/23 Adjustment disorder with anxious mood Discharge Diagnosis 10/09/23 Insomnia Discharge Diagnosis 10/09/23 Vital Signs Most recent to oldest [Reference Range]: 1 Height 149.66 cm (10/09/23 2:54 PM) Social History Social History Type Response Smoking Status Never (less than 100 in lifetime) entered on: 06/20/21 Sex Patient Care team information Care Team Personnel Name: Esthela Lomeli Position: [facility] PCO Associate Professional Member Role: PCP Address: Address: [address] [place] [address]. 3rd [place] [address]- Care Team Related Persons Name: BASILIO MALCOLM Address: [address] [place] [address] Name: DAKOTA GUZMAN Address: home [address] [address] Name: SUDHA GUZMAN Address: home [address] [place] [address]
--- OUTSIDE RECORDS SUMMARY | 2024-01-06 23:42 | XMS_ITS | Continuity of Care Document ---
Author Name Unknown Organization [facility] Adult Address [address] [place] [address]- Care Team Providers Care Head Mechanic Name Role Phone Lukasz VALLECILLO, Shelley Primary Care Physician Encounter [facility] [place] Date(s): 10/22/22 - 10/29/22 [facility] [address] [place] [address]- Encounter Diagnosis Anxiety and depression(Discharge Diagnosis) - 10/22/22 Elevated blood pressure reading without diagnosis of hypertension(Discharge Diagnosis) - 10/22/22 Attending Physician: Esthela Lomeli Allergies, Adverse Reactions, Alerts No Known Allergies Immunizations Given and Recorded Vaccine Date Status Refusal Reason SARS-CoV-2 (COVID-19) mRNA BNT-162b2 vac 04/11/21 Recorded SARS-CoV-2 (COVID-19) mRNA BNT-162b2 vac 03/21/21 Recorded influenza virus vaccine, inactivated 1 12/16/15 Gi km tetanus/diphtheria/pertussis, acel(Tdap) 2 03/25/13 Given 1Admin Note: Declined 2Admin Note: VIS 12/18/2011 Medications hydrOXYzine hydrochloride 10 mg oral tablet 2 tablet = 20 mg, By Mouth, 3 times a day, # 60 tablet, 2 Refills, Acute 11/14/22 9:41:00 EST, 10/15/22 9:41:00 EST, [facility]/pharmacy #[id number], Partial fill upon patient request if the prescription is for aschedule II opioid drug., 152.2, cm, 10/15/22 9:40:... Start Date: 10/15/22 Stop Date: 11/14/22 Status: Ordered Miscellaneous Rx Glutathiazone 1000mg, By [...] Refills, Maintenance, 06/08/21 11:16:00 EDT, CR Capsule, [facility]/pharmacy #[id number], d/c prior script, 151, cm, 05/04/21 16:27:00 EDT, Height Start Date: 06/08/21 Stop Date: 12/05/21 Status: Ordered Wellbutrin SR 150 mg/12 hours oral tablet, extended release 1 tablet = 150 mg, By Mouth, 2 times a day, # 60 tablet, 1 Refills, Maintenance, 10/15/22 9:40:00 EST, ER Tablet, [facility]/pharmacy #[id number], Partial fill upon patient request if the prescription is for a schedule II opioid drug., 152.2, cm, 10/15/22 9:40:00... Start Date: 10/15/22 Status: Ordered Problem List Condition Confirmation Course Effective Dates Status Health St at Informant Adjustment disorder with anxious mood Confirmed Active Advanced maternal age Confirmed Active Brain concussion Confirmed 11/22/11 Active Elevated BP Confirmed Active Family history of diabetes mellitus type 2 Confirmed Active Heavy periods Confirmed Active Rotator cuff tendinitis Confirmed Active Migraine headache Confirmed Active Obese class I Confirmed Active Brain injury 1 Confirmed 08/30/04 Active Uterine fibroid Confirmed Active 1Exposure to varnish fumes at work Diagnosis Diagnosis Type Effective Dates Health Status Clinical Service Informant Anxiety and depression Discharge Diagnosis 10/22/22 Elevated blood pressure reading without diagnosis of hypertension Discharge Diagnosis 10/22/22 Vital Signs Most recent to oldest [Reference Range]: 1 Height 152.2 cm (10/22/22 9:31 AM) Weight 75 kg (10/22/22 9:31 AM) Oxygen Saturation [94-100 %] 95 % (10/22/22 9:31 AM) Pulse Rate [55-90 bpm] 70 bpm (10/22/22 9:31 AM) Body Mass Index [18.5-24.99 kg/m2] 32.38 kg/m2 *>HHI* (10/22/22 9:31 AM) Blood Pressure [90-138/55-84 mm Hg] 132/ 88mm Hg (10/22/22 9:31 AM) Temperature [96.8-100.4 DegF] 98.5 DegF (10/22/22 9:31 AM) Mode of Delivery (Oxygen) Room air (10/22/22 9:31 AM) Blood pressure sites Arm, left (10/22/22 9:31 AM) Temperature Route Temporal (10/22/22 9:31 AM) Weight Obtained Via Standing scale (10/22/22 9:31 AM) Social History Social History Type Response Smoking Status Never (less than 100 in lifetime) entered on: 06/20/21 Sex Note * Loida Ross: PERFORM, SIGN, VERIFY Event Display: Patient Education/Instruction Authored Date: [id number] [facility] *[facility] Clinical Summary Name PHOEBE BURCH Age 52 Years 1970 PCP Lukasz HAND SPLITTER, Shelley PCP Visit Date 10/22/2022 09:29:00 Additional Instructions: Scheduled Appointments?? Future Appointments ?*[facility] [address],??[address] ?Phone:??--?Fax:??-- ?Appt. Date:??11/01/2022?9:20 AM ?Scheduled Provider:??David NUNEZ, Esthela Servin ?*[facility] ?[address],??[address] ?Phone:??--?Fax:??-- ?Appt. Date:??11/30/2022?10:35 AM ?Scheduled Provider:??Lukasz VALLECILLO , Shelley Follow-Up Instructions ?? Diagnosis Medications: Please continue your medications until treatment is completed or stopped by your provider. Discuss any questions related to medications with your provider. Medications to Continue with No Changes These medications were not printed or sent to your pharmacy BuPROpion (Wellbutrin SR 150 mg/12 hours oral tablet, extended release) 1 tab(s) Oral twice a day. Refills: 1. Next Dose: HydrOXYzine (hydrOXYzine hydrochloride 10 mg oral tablet) 2 tab(s) Oral 3 times a day. Refills: 2. Next Dose: Miscellaneous Rx querectine 20mg Oral Daily. Next Dose: Miscellaneous Rx Glutathiazone 1000mg Oral Daily. Next Dose: Miscellaneous Rx (peak performance pack) Oral twice a day. Next Dose: Propranolol (propranolol 120 mg oral capsule, extended release) 1 capsule Oral Daily for 30 Days. do not crush or chew Dose increase. Refills: 5. Next Dose: Allergy Info:?? NKA Medications Given This Visit Future Orders ?No future orders Vital Signs Height 152.2 cm Weight 75 kg BMI 32.38 kg/m2 Blood Pressure 132 mm Hg/88 mm Hg Temperature 98.5 DegF Pulse Rate 70 bpm Respiratory Rate 02 Sat Mode of Delivery 95 %/Room air You can now view a summary of your hospital visit from the comfort of your home through a free online portal called [employer]. [employer] is a website that allows you to securely view your medical information including discharge summary, medications and follow-up visits. ??You can alsosend a secure electronic message to your doctor???s office to request appointments, renew medications or just ask a question. You can enroll at [email or web address] or register during your next office visit. Disclaimer:?? The information provided is of a general nature and is intended to be used in conjunction with the recommendations and advice of your health care practitioner. ??Every effort has been made to ensure that the information provided is accurate and complete at the time it is provided to you however, as your needs change, or, as new ??information becomes available, different or additional instructions may be required. If you have questions, please consult with your primary care provider or pharmacist, as appropriate. ??This information is not intended to serve as substitution for assessment and evaluation by a qualified health care provider. If you do not have a primary care provider, you may find a [facility] provider by calling [facility] at [phone]. For information about the plan of care including goals and instructions for your diagnosis, please see the patient education orders section of this document. Patient Education Materials?? The content of this educational material or handout may have been modified, supplemented, or adapted from its original content and format to support your individualized medical care. Patient Care team information Care Team Personnel Name: Shelley Lal NP Position: S PCO Associate Professional Member Role: PCP Address: Address: [address] [place] [address], 3rd [place] [address]- Care Team Related Persons Name: BASILIO MALCOLM Address: [address] [place], [place] [id number] Name: DAKOTA GUZMAN Address: home [address] [place] [address] [place] [address] Name: SUDHA BOSWELL Address: home [address] [place] [address] [place] [address]
--- OUTSIDE RECORDS SUMMARY | 2024-01-06 23:42 | XMS_ITS | Continuity of Care Document ---
Author Name Unknown Organization [facility] Address [address] [facility], 3r d Floor, [address] [place] [address]- Care Team Providers Care Nailhead Setter Name Role Phone Ehsan VALLECILLO, Priyanka Martin Primary Care Physician [place] [facility] [place]s): [place]12/19 - 12/20/19 [facility] [address], [address] Floor, [address] [place] [address] Attending Physician: Fanny Garza MD Admitting Physician: Fanny Garza MD Referring Physician: Vasquez Schwab MD Allergies, Adverse Reactions, Alerts Substance Reaction [...]
--- OUTSIDE RECORDS SUMMARY | 2024-01-06 23:42 | XMS_ITS | Continuity of Care Document ---
Author Name Unknown Organization [facility] Adult Address [address] [place] [address]- Care Team Providers Care Vegetable Vendor Name Role Phone Lukasz VALLECILLO, Shelley Primary Care Physician Encounter [facility] Date(s): 04/11/23 - 05/11/23 [facility] Adult [address] [place] [address]- Attending Physician: Columba Arana Admitting Physician: Columba Arana Referring Physician: Columba Arana Referring Physician: Lu Lira Allergies, Adverse Reactions, Alerts Substance Reaction Severity [...] 04/24/23 11:38:00 EDT, Route to [facility], 149.86, cm, 04/10/23 6:49:00 EDT, Height, 75.1, [...] Team Personnel Name: Shelley Lal NP Position: [facility] PCO Associate Professional Member Role: PCP Address: Address: [address] [place] [address], 3rd [place] [address]- Care Team Related Persons Name: BASILIO MALCOLM Address: [address] [place] [address] Name: DAKOTA GUZMAN Address: [address] [address] Name: SUDHA GUZMAN Address: home [address] [place] [address]
--- OUTSIDE RECORDS SUMMARY | 2024-01-06 23:42 | XMS_ITS | Continuity of Care Document ---
Author Name Unknown Organization [facility] Adult Address [address] [place] [address]- Care Team Providers Care Mapping Engineer Name Role Phone David VALLECILLO, Jesica Saez Primary Care Physicia n [id number] - 12[facility]26/21 [facility] Adult [address] [place] [address]- Encounter Diagnosis Decreased ROM of right shoulder(Discharge Diagnosis) - 12/19/21 Plantar wart(Discharge Diagnosis) - 12/19/21 Attending Physician: Hawa Ellis NP Allergies, Adverse Reactions, Alerts No Known [...] Maintenance, 06/08/21 11:16:00 EDT, CR Capsule, [id number], d/c prior script, 151, cm, 05/04/21 16:27:00 EDT, Height Start Date: 06/08/21 Stop Date: 12/05/21 Status: Ordered Problem List Condition Effective Dates Status Health Status Inform ant Adjustment disorder with anx ious mood(Confirmed) Active Advanced maternal age(Confirmed) Active Brain concussion(Confirmed) 11/22/11 Active Elevated BP(Confirmed) Active Family history of diabetes m ellitus type 2(Confirmed) Active Heavy periods(Confirmed) Active Migraine headache(Confirmed) Active Obese class I(Confirmed) Active Brain injury(Confirmed) 1 08/30/04 Active Uterine fibroid(Confirmed) Active 1Exposure to varnish fumes at work Diagnosis Diagnosis Type Effective Dates Health Status Cl inical Service Informant Decreased ROM of right shoulder Discharge Diagnosis 12/19/21 Plantar wart Discharge Diagnosis 12/19/21 Vital Signs Most recent to oldest [Reference Range]: 1 Height 152.2 cm (12/19/21 1:53 PM) Weight 79.6 kg (12/19/21 1:53 PM) Oxygen Saturation [94-100 %] 98 % (12/19/21 1:53 PM) Pulse Rate [55-90 bpm] 92 bpm *H* (12/19/21 1:53 PM) Body Mass Index [18.5-24.99] 34.36 *>HHI* (12/19/21 1:53 PM) Blood Pressure [90-138/55-84 mm Hg] 126/ 82mm Hg (12/19/21 1:53 PM) Temperature [96.8-100.4 DegF] 98.4 DegF (12/19/21 1:53 PM) Mode of Delivery (Oxygen) Room air (12/19/21 1:53 PM) Blood pressure sites Arm, left (12/19/21 1:53 PM) Temperature Route Oral (12/19/21 1:53 PM) Weight Obtained Via Standing scale (12/19/21 1:53 PM) Social History Social History Type Response Smoking Status Never (less than 100 in lifetime) entered on: 06/20/21 Sex
--- OUTSIDE RECORDS SUMMARY | 2024-01-06 23:42 | XMS_ITS | Continuity of Care Document ---
Author Name Unknown Organization [facility] Address [address] [facility], 3[address] d Floor, [address] [place] [address]- Care Team Providers Care Textile Machine Mechanic Name Role Phone Ehsan VALLECILLO, Priyanka Martin Primary Care Physician Encounter [facility] Date(s): 02/19/20 - 02/29/20 [facility] [address], [address], [address] [place] [address]- [facility] Attending Physician: Columba Arana Admitting Physician: Columba Arana Referring Physician: AdmtrColumba Allergies, Adverse Reactions, Alerts Substance Reaction Severity [...] 8:16:00 EST, 01/15/20 8:16:00 EST, Tablet, [id number] tried sum... Start Date: 01/15/20 Stop Date: [...]
--- OUTSIDE RECORDS SUMMARY | 2024-01-06 23:42 | XMS_ITS | Continuity of Care Document ---
Author Name Unknown Organization [facility] Adult Address [address] [place] [address]- Care Team Providers Care Poultry Farm Laborer Name Role Phone Ehsan VALLECILLO, Priyanka Martin Primary Care Physician Encounter [facility] Date(s): 06/05/21 - 06/12/21 [facility] Adult [address] [place] [address]- Encounter Diagnosis Adverse reaction to vaccine(Discharge Diagnosis) - 06/05/21 Adjustment disorder with anxious mood(Discharge Diagnosis) - 06/05/21 Attending Physician: Not on Staff, Attending MD Referring Physician: Priyanka Moser NP Allergies, Adverse Reactions, Alerts Substance Reaction [...] Maintenance, 06/08/21 11:16:00 EDT, CR Capsule, [id number], d/c prior script, 151, cm, 05/04/21 16:27:00 [...] Informant Adverse reaction to vaccine Discharge Diagnosis 06/05/21 Adjustment disorder with anxious mood Discharge Diagnosis 06/05/21
--- OUTSIDE RECORDS SUMMARY | 2024-01-06 23:42 | XMS_ITS | Continuity of Care Document ---
Author Name Unknown Organization [facility] Adult Address [address] [place] [address]- Care Team Providers Care Nba Player Name Role Phone Lukasz VALLECILLO, Shelley Primary Care Physician [phone] Encounter [facility] Date(s): 02/20/23 - 02/27/23 [facility] Adult [address] [place] [address]- Encounter Diagnosis Generalized anxiety disorder(Discharge Diagnosis) - 02/20/23 PTSD (post-traumatic stress disorder)(Discharge Diagnosis) - 02/20/23 Depression(Discharge Diagnosis) - 02/20/23 Attending Physician: Esthela Lomeli Allergies, Adverse Reactions, [...] EST, Compound Start Date: 01/15/20 Status: Ordered prazosin 1 mg oral capsule See Instructions, 1 capsule by mouht as needed at bedtime, # 30 capsule, Refills 1, Tot. Refills 1,Maintenance, 02/20/23 10:08:00 EDT, Instructions Replace Required Details, Route to Pharmacy Electronically, [facility]/pharmacy #[id number], Partial fill upon roger... Start Date: 02/20/23 Status: Ordered propranolol 120 mg oral capsule, extended release 1 capsule = 120 mg, By Mouth, Daily, do not crush or chew Dose increase, # 30 capsule, 5 Refills, Maintenance, 06/08/21 11:16:00 EDT, CR Capsule, [facility]/pharmacy #[id number], d/c prior script, 151, cm, 05/04/21 16:27:00 EDT, Height Start Date: 06/08/21 Stop Date: 12/05/21 Status: Ordered Zoloft 25 mg oral tablet See Instructions, 1 tablet by mouth daily for 14 days, then 2 tablets by mouth daily thereafter., #90 tablet, 1 Refills, Maintenance, 02/20/23 10:08:00 EDT, [facility]/pharmacy #[id number], Partial fill upon patient request if the prescription is for a schedule I... Start Date: 02/20/23 Status: Ordered Problem List Condition Confirmation Course [...] Effective Dates Health Status Clinical Service Informant Generalized anxiety disorder Discharge Diagnosis 02/20/23 PTSD (post-traumatic stress disorder) Discharge Diagnosis 02/20/23 Depression Discharge Diagnosis 02/20/23 Vital Signs Most recent to oldest [Reference Range]: 1 Height 152.2 cm (02/20/23 9:22 AM) Weight 74.4 kg (02/20/23 9:22 AM) Oxygen Saturation [94-100 %] 98 % (02/20/23 9:22 AM) Pulse Rate [55-90 bpm] 101 bpm *H* (02/20/23 9:22 AM) Body Mass Index [18.5-24.99 kg/m2] 32.12 kg/m2 *>HHI* (02/20/23 9:22 AM) Blood Pressure [90-138/55-84 mm Hg] 124/ 84mm Hg (02/20/23 9:22 AM) Temperature [96.8-100.4 DegF] 98.4 DegF (02/20/23 9:22 AM) Mode of Delivery (Oxygen) Room air (02/20/23 9:22 AM) Blood pressure sites Arm, left (02/20/23 9:22 AM) Temperature Route Temporal (02/20/23 9:22 AM) Weight Obtained Via Standing scale (02/20/23 9:22 AM) Social History Social History Type Response Smoking Status Never (less than 100 in lifetime) entered on: 06/20/21 Sex Note * Sydnie Orellana: PERFORM, SIGN, VERIFY Event Display: Patient Education/Instruction Authored Date: [facility] Clinical Summary Name PHOEBE BURCH Age 53 Years 1970 PCP Lukasz VALLECILLO, Shelley PCP Visit Date 02/20/2023 09:19:00 Additional Instructions: Scheduled Appointments?? Future Appointments ?*[facility] [address],??[address] ?Phone:??--?Fax:??-- ?Appt. Date:??04/11/2023?11:40 AM ?Scheduled Provider:??David NUNEZ, Esthela Servin Follow-Up Instructions ?? Diagnosis Generalized anxiety disorder; Depression, unspecified; Post-traumatic stress disorder, unspecified Medications: Please continue your medications until treatment is completed or stopped by your provider. Discuss any questions related to medications with your provider. New Medications [facility]/pharmacy #[id number], [address] [place] [id number], [phone] Prazosin (prazosin 1 mg oral capsule) 1 capsule by mouht as needed at bedtime. Refills: 1. Next Dose: Sertraline (Zoloft 25 mg oral tablet) 1 tablet by mouth daily for 14 days, then 2 tablets by mouth daily thereafter.. Refills: 1. Next Dose: Medications to Continue with No Changes These medications were not printed or sent to your pharmacy BuPROpion (BuPROPion (Eqv-Wellbutrin SR) 150 mg/12 hours oral tablet, extended release) 1 tab(s) Oral twice a day. Refills: 5. Next Dose: Miscellaneous Rx querectine 20mg Oral [...] orders Vital Signs Height 152.2 cm Weight 74.4 kg BMI 32.12 kg/m2 Blood Pressure 124 mm Hg/84 mm Hg Temperature 98.4 DegF Pulse Rate 101 bpm Respiratory Rate 02 Sat Mode of Delivery 98 %/Room air You can now view a summary of your hospital visit from the comfort of your home through a free online portal called [employer]. [employer] is a website that allows you to securely view your medical information including discharge summary, medications and follow-up visits. ??You can alsosend a secure electronic message to your doctor???s office to request appointments, renew medications or just ask a question. You can enroll at [email or web address] or register during your next office visit. [...] primary care provider, you may find a [facility] provider by calling [facility] [employer] Link at [phone]. For information about the plan of care [...] Team Personnel Name: Shelley Lal NP Position: [facility] PCO Associate Professional Member Role: PCP Address: Address: [address] [facility], 3rd [place] [address]- Care Team Related Persons Name: BASILIO MALCOLM Address: home [address] [place] [address] Name: DAKOTA GUZMAN Address: [address] [address] Name: SUDHA BOSWELL Address: home [address] [place] [phone]
--- OUTSIDE RECORDS SUMMARY | 2024-01-06 23:42 | XMS_ITS | Continuity of Care Document ---
Author Name Unknown Organization [facility] Address Unknown Care Team Providers Care Rn Vascular Name Role Phone David DIAMOND GRADER, Jesica Saez Primary Care Physicia n [facility] [facility] [id number] Date(s): 05/13/21 - 09/10/21 [facility] Attending Physician: Fanny Garza MD Admitting Physician: Fanny Garza MD Allergies, Adverse Reactions, Alerts Substance Reaction [...]
--- OUTSIDE RECORDS SUMMARY | 2024-01-06 23:42 | XMS_ITS | Continuity of Care Document ---
Author Name Unknown Organization [facility] Adult Address [address] [place] [address]- Care Team Providers Care Family Consultant Name Role Phone Lukasz VALLECILLO, Shelley Primary Care Physician Encounter [facility] Date(s): 04/26/22 - 05/26/22 [facility] Adult [address] [place] [address]- Attending Physician: Columba Arana Admitting Physician: Columba [...]
--- OUTSIDE RECORDS SUMMARY | 2024-01-06 23:42 | XMS_ITS | Continuity of Care Document ---
Author Name Unknown Organization [facility] Address [address] [facility], 3r d Floor, [address] [place] [address]- Care Team Providers Care Building Supplies Salesperson Retail Name Role Phone Ehsan VALLECILLO, Priyanka Martin Primary Care Physician En[place] [facility] Date(s): 02/24/21 - 03/26/21 [facility] [address], 3[address] Floor, [address] [place] [address] Attending Physician: Columba Arana Admitting Physician: Columba [...] Maintenance,02/10/21 9:06:00 EDT, Route to Pharmacy Electronically, [facility]/pharmacy #[id number], dose increase, 151.7, cm, 07/18/20 17:52:00 EDT, Height, 80.3, kg, 03/06/19... Start Date: 02/10/21 Stop Date: 10/15/21 Status: Ordered Problem List Condition Effective Dates [...]
--- OUTSIDE RECORDS SUMMARY | 2024-01-06 23:43 | XMS_ITS | Continuity of Care Document ---
Author Name Unknown Organization [facility] Address [address] [facility], 3r d Floor, [address] [place] [address]- Care Team Providers Care Psychiatric Clinician Name Role Phone Ehsan VALLECILLO, Priyanka Martin Primary Care Physician Encounter [facility] Date(s): 06/08/21 - 07/08/21 [facility] [address], [address] Floor, [address] [place] [address] Allergies, Adverse Reactions, Alerts Substance Reaction Severity Status NKA Active Immunizations Given and Recorded Vaccine Date Status Refusal Reason SARS-CoV-2 (COVID-19) mRNA BNT-162b2 vac 04/11/21 Recorded SARS-CoV-2 (COVID-19) mRNA BNT-162j4 vac 03/21/21 Recorded influenza virus vaccine, inactivated [...]
--- OUTSIDE RECORDS SUMMARY | 2024-01-06 23:43 | XMS_ITS | Continuity of Care Document ---
Author Name Unknown Organization [facility] Adult Address [address] [place] [address]- Care Team Providers Care Ultrasonic Welding Machine Operator Name Role Phone Lukasz VALLECILLO, Shelley Primary Care Physician [phone] Encounter [facility] Date(s): 04/06/22 - 04/13/22 [facility] Adult [address] [place] [address]- Encounter Diagnosis Abdominal discomfort(Discharge Diagnosis) - 04/06/22 Attending Physician: Luna KELSEY, Sasha Referring Physician: David VALLECILLO, Jesica Saez Allergies, Adverse Reactions, Alerts No Known Allergies [...] Effective Dates Health Status Clinical Service Informant Abdominal discomfort Discharge Diagnosis 04/06/22 Vital Signs Most recent to oldest [Reference Range]: 1 Height 152.2 cm (04/06/22 11:08 AM) Weight 81 kg (04/06/22 11:08 AM) Oxygen Saturation [94-100 %] 97 % (04/06/22 11:08 AM) Pulse Rate [55-90 bpm] 75 bpm (04/06/22 11:08 AM) Body Mass Index [18.5-24.99] 34.97 *>HHI* (04/06/22 11:08 AM) Blood Pressure [90-138/55-84 mm Hg] 127/ 85mm Hg (04/06/22 11:08 AM) Respiratory Rate [16-30 br/min] 18 br/mi n (04/06/22 11:08 AM) Mode of Delivery (Oxygen) Room air (04/06/22 11:08 AM) Blood pressure sites Arm, right (04/06/22 11:08 AM) Weight Obtained Via Standing scale (04/06/22 11:08 AM) Social History Social History Type Response Smoking Status Never (less than 100 in lifetime) entered on: 06/20/21 Sex
--- OUTSIDE RECORDS SUMMARY | 2024-01-06 23:43 | XMS_ITS | Continuity of Care Document ---
Author Name Unknown Organization [facility] Adult Address [address] [place] [address]- Care Team Providers Care Lending Manager Name Role Phone Esthela Lomeli Primary Care Physician [place] [facility] [place] 09/05/23 - 09/12/23 [facility] Adult [address] [place] [address]- Encounter Diagnosis Depression, major, recurrent, moderate(Discharge Diagnosis) - 09/05/23 Adjustment disorder with anxious mood(Discharge Diagnosis) - 09/05/23 Attending Physician: Esthela Lomeli Allergies, Adverse Reactions, [...] 10/06/23 8:23:00 EST, 09/05/23 8:22:00 EDT, [facility]t, [id number], Partial fill upon patient request if the prescription is for a schedule II opioid drug... Start Date: 09/05/23 Stop Date: 10/06/23 Status: Ordered BuPROPion (Eqv-Wellbutrin SR) 150 mg/12 hours oral tablet, extended release 1 tablet, By Mouth, 2 times a day, # 180 Unknown, 1 Refills, Maintenance, 05/20/23 19:33:00 EDT, [facility], 149.86, cm, 04/10/23 6:49:00 EDT, Height, 75.1, kg, 04/10/23 6:49:00 EDT, Dry Weight Start Date: 05/20/23 Status: Ordered prazosin 1 mg oral capsule 1, capsule, By Mouth, Daily at bedtime, PRN, # 30 capsule, Refills 1, Maintenance, NEEDED, 04/24/23 11:38:00 EDT, Route to Pharmacy Electronically, [facility], 149.86, cm, 04/10/23 6:49:00 EDT, Height, 75.1, kg, 04/10/23 6:49:00 EDT, Dry Weight Start Date: 04/24/23 Status: Ordered sertraline 25 mg oral tablet 1 tablet = 25 mg, By Mouth, Daily, Take 1 tablet by mouth daily in addition to 50 mg tablet totaling 75 mg daily, # 90 tablet, 0 Refills, Maintenance, 09/05/23 8:25:00 EDT, [facility]t, [id number], Partial fill upon [...] Informant Depression, major, recurrent, moderate Discharge Diagnosis 09/05/23 Adjustment disorder with anxious mood Discharge Diagnosis 09/05/23 Vital Signs Most recent to oldest [Reference Range]: 1 Height 149.86 cm (09/05/23 7:45 AM) Social History Social History Type Response Smoking Status Never (less than 100 in lifetime) entered on: 06/20/21 Sex Note * Chad Ferrari: PERFORM, SIGN, VERIFY Event Display: Patient Education/Instruction Authored Date: [id number] [facility] Clinical Summary Name PHOEBE BURCH Age 53 Years 1970 PCP Lukasz VALLECILLO, Shelley PCP Visit Date 09/05/2023 07:22:00 Additional Instructions: Scheduled Appointments?? Future Appointments ?No Future Appointments Scheduled Follow-Up Instructions ?? Diagnosis Adjustment disorder with anxiety; Major depressive disorder, recurrent, moderate Medications: Please continue your medications until treatment is completed or stopped by your provider. Discuss any questions related to medications with your provider. New Medications [id number], [address] [place] [phone], [phone] Lorazepam (Ativan 0.5 mg oral tablet) 1 tab(s) Oral Daily as needed as needed for anxiety. Refills:0. Next Dose: Medications to Continue Taking That Have Changed [facility]/pharmacy #[id number], [address] [place] [phone], [phone] - Sertraline (sertraline 25 mg oral tablet) 1 tab(s) Oral Daily. Take 1 tablet by mouth daily in addition to 50 mg tablet totaling 75 mg daily. Refills: 0. Next Dose: These medications were not printed or sent to your pharmacy - Sertraline (sertraline 50 mg oral tablet) 1 tab(s) Oral Daily. Refills: 0. Next Dose: Medications to Continue with No Changes These medications were not printed or sent to your pharmacy BuPROpion (BuPROPion (Eqv-Wellbutrin SR) 150 mg/12 hours oral tablet, extended release) 1 tab(s) Oral twice a day. Refills: 1. Next Dose: Prazosin (prazosin 1 mg oral capsule) 1 capsule Oral Daily at Bedtime as needed. Refills: 1. Next Dose: Allergy Info:?? Other Environmental Allergy Medications Given This Visit Future Orders ?No future orders Vital Signs Height 149.86 cm Weight BMI Blood Pressure / Temperature Pulse Rate Respiratory Rate 02 Sat Mode of Delivery / You can now view a summary of your hospital visit from the comfort of your home through a free online portal called [employer]. [employer] is a website that allows you to securely view your medical information including discharge summary, medications and follow-up visits. ??You can alsosend a secure electronic message to your doctor???s office to request appointments, renew medications or just ask a question. You can enroll at [email or web address] or register during your next office visit. [...] primary care provider, you may find a [facility] provider by calling [facility] [employer] Link at [phone]. [facility], in keeping with [facility] guidance, no longer requires face masks for staff, patientsor visitors in most situations. Similar to time spent indoors at other locations, there is the chance that you were exposed to respiratory viruses during your time with us (such as flu or COVID-19).? If you develop symptoms concerning for a viral respiratory infection, please seek testing (and treatment if indicated) from your medical provider or home test kit. For information about the plan of care [...] Care Team Personnel Name: Esthela Lomeli Position: [facility] PCO Associate Professional Member Role: PCP Address: Address: [address] [place] [address]. 3rd [place] [address]- Care Team Related Persons Name: BASILIO MALCOLM Address: home [address] [place] [address] Name: DAKOTA GUZMAN Address: home [address] [place] [address] [place] [address] Name: SUDHA GUZMAN Address: home [address] [facility] [place] [address]
--- OUTSIDE RECORDS SUMMARY | 2024-01-06 23:43 | XMS_ITS | Continuity of Care Document ---
Author Name Unknown Organization [facility] Address [address] [facility], [address]r d Floor, [address] [place] [address]- Care Team Providers Care Flight Operations Coordinator Name Role Phone Ehsan VALLECILLO, Priyanka Martin Primary Care Physician Encounter [facility] Date(s): 02/19/20 - 02/26/20 [facility] [address], [address] Floor, [address] [place] [address] [facility] Attending Physician: Brian Siegel MD Allergies, Adverse Reactions, Alerts Substance Reaction [...] 8:16:00 EST, 01/15/20 8:16:00 EST, Tablet, [id number], tried sum... Start Date: 01/15/20 Stop Date: [...]
--- OUTSIDE RECORDS SUMMARY | 2024-01-06 23:43 | XMS_ITS | Continuity of Care Document ---
Author Name Unknown Organization [facility] Adult Address [address] [place] [address]- Care Team Providers Care Cut Plug Packer Name Role Phone Shelley Lal NP Primary Care Physician En[place] [facility] [place] Date(s): 09/11/22 - 09/18/22 [facility] [address] [place] [address]- Encounter Diagnosis Adjustment disorder with anxious mood(Discharge Diagnosis) - 09/11/22 Migraine headache(Discharge Diagnosis) - 09/11/22 Gynecomastia(Discharge Diagnosis) - 09/11/22 Attending Physician: Not on Staff, Attending MD Allergies, Adverse Reactions, Alerts No Known Allergies [...] Maintenance, 06/08/21 11:16:00 EDT, CR Capsule, [id number], d/c prior script, 151, cm, 05/04/21 16:27:00 [...] Adjustment disorder with anxious mood Discharge Diagnosis 09/11/22 Migraine headache Discharge Diagnosis 09/11/22 Gynecomastia Discharge Diagnosis 09/11/22 Vital Signs Most recent to oldest [Reference Range]: 1 Height 152.2 cm (09/11/22 1:38 PM) Weight 75 kg (09/11/22 1:38 PM) Body Mass Index [18.5-24.99 kg/m2] 32.38 kg/m2 *>HHI* (09/11/22 1:38 PM) Weight Obtained Via Patient/family state d (09/11/22 1:38 PM) Social History Social History Type Response Smoking Status Never (less than 100 in lifetime) entered on: 06/20/21 Sex Patient Care team information Personnel Name: Shelley Lal NP Address: Address: [address] [place] [address], 3rd Floor [place], [place] [address]
--- OUTSIDE RECORDS SUMMARY | 2024-01-06 23:43 | XMS_ITS | Continuity of Care Document ---
Author Name Unknown Organization [facility] Address [address] [place] [address]- Care Team Providers Care Precision Instrument Maker Name Role Phone Ehsan VALLECILLO, Priyanka Martin Primary Care Physician Encounter [facility] [place] Date(s): 03/09/20 - 03/19/[address] [address]- [facility] Attending Physician: Columba Arana Admitting Physician: Columba Arana Referring Physician: Columba Arana Allergies, Adverse Reactions, Alerts Substance Reaction Severity [...] 8:16:00 EST, 01/15/20 8:16:00 EST, Tablet, [id number], tried sum... Start Date: 01/15/20 Stop Date: [...]
--- OUTSIDE RECORDS SUMMARY | 2024-01-06 23:43 | XMS_ITS | Continuity of Care Document ---
Author Name Unknown Organization [facility] Address [address] [facility], 3r d Floor, [address] [place] [address]- Care Team Providers Care Hired Worker Name Role Phone Ehsan VALLECILLO, Priyanka Martin Primary Care Physician Encounter [facility] [place] Date(s): 02/10/21 - 02/17/21 [facility] [address], 3rd Floor, [address] [place] [address] Attending Physician: Fanny Garza MD Allergies, Adverse Reactions, [...] Maintenance,02/10/21 9:06:00 EDT, Route to Pharmacy Electronically, [facility]/pharmacy #[id number], dose increase, 151.7, cm, 07/18/20 17:52:00 EDT, [...]
--- OUTSIDE RECORDS SUMMARY | 2024-01-06 23:43 | XMS_ITS | Continuity of Care Document ---
Author Name Unknown Organization [facility] Address [address] [facility], 3r d Floor, [address] [place] [address]- Care Team Providers Care Juice Standardizer Name Role Phone Ehsan FRAME AND SCRAP CRUSHER, Priyanka Martin Primary Care Physician Encounter [facility] [place] Date(s): 09/09/20 - 01/07/21 [facility] [address], 3rd Floor, [address] [place] [address] Attending Physician: Fanny Garza MD Admitting Physician: [...] Compound Start Date: 01/15/20 Status: Ordered propranolol 40 mg oral tablet 40 mg, 1, tablet, By Mouth, Daily at supper, # 30 tablet, Refills 5, Tot. Refills 5, Maintenance, 12/08/20 15:46:00 EST, Route to Pharmacy Electronically, [facility]/pharmacy #[id number], d/c prior script for b2 & magnesium, 151.7, cm, 07/18/20 17:52:00 EDT,... Start Date: 12/08/20 Stop Date: 06/06/21 Status: Ordered Problem List Condition Effective Dates [...]
--- OUTSIDE RECORDS SUMMARY | 2024-01-06 23:43 | XMS_ITS | Continuity of Care Document ---
Author Name Unknown Organization [facility] Address [address] [place] [address]- Care Team Providers Care Wheel Braider Name Role Phone Lukasz VALLECILLO, Shelley Primary Care Physician [phone] En[place] [facility] [place] Date(s): 06/23/22 - 08/02/[address] [address]- Attending Physician: Sammy VALLECILLO, Sarah Gongora Referring Physician: Sammy VALLECILLO, Sarah Gongora Allergies, Adverse Reactions, Alerts No Known Allergies [...] 100 in lifetime) entered on: 06/20/21 Sex Care Team Personnel Name: Shelley Lal NP Address: [address] [place] [address], 3rd Floor [place], [place] [address]
--- OUTSIDE RECORDS SUMMARY | 2024-01-06 23:43 | XMS_ITS | Continuity of Care Document ---
Author Name Unknown Organization [facility] Address [address] [place] [address]- Care Team Providers Care Senior It Project Manager Name Role Phone Ehsan VALLECILLO, Priyanka Martin Primary Care Physician Encounter [facility] [place] Date(s): 07/18/20 - 07/25/20 [facility] [address] [place] [address]- [facility] Attending Physician: Alek Lin MD Referring Physician: Priyanka Moser NP Allergies, [...] Active 1Exposure to varnish fumes at work Vital Signs Most recent to oldest [Reference Range]: 1 Height 151.7 cm (07/18/20 5:52 PM) Weight 78.3 kg (07/18/20 5:52 PM) Oxygen Saturation [94-100 %] 97 % (07/18/20 5:52 PM) Pulse Rate [55-90 bpm] 73 bpm (07/18/20 5:52 PM) Body Mass Index [18.5-24.99] 34.02 *>HHI* (07/18/20 5:52 PM) Blood Pressure [90-138/55-84 mm Hg] 133/ 71mm Hg (07/18/20 5:52 PM) Temperature [96.8-100.4 DegF] 98.6 DegF (07/18/20 5:52 PM) Mode of Delivery (Oxygen) Room air (07/18/20 5:52 PM) Blood pressure sites Arm, left (07/18/20 5:52 PM) Temperature Route Oral (07/18/20 5:52 PM) Weight Obtained Via Standing scale (07/18/20 5:52 PM)
--- OUTSIDE RECORDS SUMMARY | 2024-01-06 23:43 | XMS_ITS | Continuity of Care Document ---
Author Name Unknown Organization [facility] Address [address] [facility] [place] [address] [place] [address]- Care Team Providers Care Director Electrical Engineering Name Role Phone Ehsan VALLECILLO, Priyanka Martin Primary Care Physician Encounter 06/26/21 - 07/03/21 [facility] [address] [facility], [address] [place], [place] [address] Attending Physician: David VALLECILLO, Jesica Saez Admitting Physician: David VALLECILLO, Jesica Saez Referring Physician: David VALLECILLO, Jesica Saez Allergies, [...] Maintenance, 06/08/21 11:16:00 EDT, CR Capsule, [id number], d/c prior script, 151, cm, 05/04/21 16:27:00 [...]
--- OUTSIDE RECORDS SUMMARY | 2024-01-06 23:43 | XMS_ITS | Continuity of Care Document ---
Author Name Unknown Organization [facility] Address [address] [place] [address]- Care Team Providers Care Circulation Man Name Role Phone Lukasz VALLECILLO, Shelley Primary Care Physician Encounter [facility] Date(s): 04/04/22 - 05/04/22 [facility] [address] [place] [address]- Allergies, Adverse Reactions, Alerts No Known Allergies Immunizations Given and Recorded Vaccine Date Status Refusal Reason SARS-CoV-2 (COVID-19) mRNA BNT-162b2 vac 04/11/21 Recorded SARS-CoV-2 (COVID-19) mRNA BNT-162o7 vac 03/21/21 Recorded influenza virus vaccine, inactivated [...] Maintenance, 06/08/21 11:16:00 EDT, CR Capsule, [id number], d/c prior script, 151, cm, 05/04/21 16:27:00 [...]
--- OUTSIDE RECORDS SUMMARY | 2024-01-06 23:43 | XMS_ITS | Continuity of Care Document ---
Author Name Unknown Organization [facility] Address [address] [facility], 3r d Floor, [address] [place] [address]- Care Team Providers Care Top Former Name Role Phone Ehsan CHARCOAL UNLOADER, Priyanka Martin Primary Care Physician [place] [facility] [place] 12/23/20 - 01/22/21 [facility] [address], 3[address] Floor, [address] [place] [address] Allergies, Adverse Reactions, Alerts Substance Reaction Severity [...] Compound Start Date: 01/15/20 Status: Ordered propranolol 60 mg oral capsule, extended release 60 mg, 1, capsule, By Mouth, Daily, do not crush or chew dose increase, # 30 capsule, Refills 5, Tot. Refills 5, Maintenance, 01/18/21 15:02:00 EST, Route to Pharmacy Electronically, [facility]/pharmacy #[id number], Partial fill upon patient request if the prescr... Start Date: 01/18/21 Stop Date: 07/17/21 Status: Ordered Problem List Condition Effective Dates [...]
--- OUTSIDE RECORDS SUMMARY | 2024-01-06 23:43 | XMS_ITS | Continuity of Care Document ---
Author Name Unknown Organization [facility] Address [address] [facility], 3r d Floor, [address] [place] [address]- Care Team Providers Care Locksmith Name Role Phone Ehsan VALLECILLO, Priyanka Martin Primary Care Physician En[place] [facility] [place] [facility] [id number] Date(s): 04/17/21 - 05/20/21 [facility] [address], [address] Floor, [address] [place] [address] Attending Physician: Becky Thayer NP Admitting Physician: Becky Thayer NP Referring Physician: Priyanka Moser NP Allergies, Adverse [...] Maintenance,02/10/21 9:06:00 EDT, Route to Pharmacy Electronically, [facility]/pharmacy #[id number], dose increase, 151.7, cm, 08/24/20 17:52:00 EDT, Height, 80.3, kg, 03/06/19... Start [...]
--- OUTSIDE RECORDS SUMMARY | 2024-01-06 23:43 | XMS_ITS | Continuity of Care Document ---
Author Name Unknown Organization [facility] Address [address] [place] [address]- Care Team Providers Care Aviation Survival Technician Name Role Phone David VALLECILLO, Jesica Saez Primary Care Physicia n [place] [facility] 09/05/21 - 10/05/21 [facility] [address] [place] [address]- Allergies, Adverse Reactions, Alerts Substance Reaction Severity [...]
--- OUTSIDE RECORDS SUMMARY | 2024-01-06 23:43 | XMS_ITS | Continuity of Care Document ---
Author Name Unknown Organization [facility] Address [address] [place] [address]- Care Team Providers Care Sheet Finisher Name Role Phone Ehsan VALLECILLO, Priyanka Martin Primary Care Physician Encounter [facility] Date(s): 05/04/21 - 05/11/21 [facility] [address] [place] [address]- Encounter Diagnosis Adverse reaction to vaccine(Discharge Diagnosis) - 05/04/21 Hair loss(Discharge Diagnosis) - 05/04/21 Attending Physician: Not on Staff, Attending MD [...] Maintenance,02/10/21 9:06:00 EDT, Route to Pharmacy Electronically, [facility]/pharmacy #[id number], dose increase, 151.7, cm, 08/24/20 17:52:00 EDT, [...] Dates Health Status Cl inical Service Informant Adverse reaction to vaccine Discharge Diagnosis 05/04/21 Hair loss Discharge Diagnosis 05/04/21 Vital Signs Most recent to oldest [Reference Range]: 1 Height 151 cm (05/04/21 4:27 PM) Weight 74.2 kg (05/04/21 4:27 PM) Oxygen Saturation [94-100 %] 98 % (05/04/21 4:27 PM) Pulse Rate [55-90 bpm] 74 bpm (05/04/21 4:27 PM) Body Mass Index [18.5-24.99] 32.54 *>HHI* (05/04/21 4:27 PM) Blood Pressure [90-138/55-84 mm Hg] 130/ 85mm Hg (05/04/21 4:27 PM) Mode of Delivery (Oxygen) Room air (05/04/21 4:27 PM) Blood pressure sites Arm, left (05/04/21 4:27 PM) Weight Obtained Via Standing scale (05/04/21 4:27 PM)
--- OUTSIDE RECORDS SUMMARY | 2024-01-06 23:43 | XMS_ITS | Continuity of Care Document ---
Author Name Unknown Organization [facility] Address [address] [facility], 3r d Floor, [address] [place] [address]- Care Team Providers Care Electrical Engineering Professor Name Role Phone Ehsan VALLECILLO, Priyanka Martin Primary Care Physician En[place] [facility] [place] [place] Date(s): 01/15/20 - 03/20/20 [facility] [address], 3[address] Floor, [address] [place] [address]- [facility] Attending Physician: Becky Thayer NP Admitting [...] 8:16:00 EST, 01/15/20 8:16:00 EST, Tablet, [id number], tried sum... Start Date: 01/15/20 Stop Date: [...]
--- OUTSIDE RECORDS SUMMARY | 2024-01-06 23:43 | XMS_ITS | Continuity of Care Document ---
Author Name Unknown Organization [facility] Address [address] [facility], 3r d Floor, [address] [place] [address]- Care Team Providers Care Removable Prosthodontist Name Role Phone Ehsan VALLECILLO, Priyanka Martin Primary Care Physician Encounter [facility] Date(s): 12/08/20 - 03/26/21 [facility] [address], [address] Floor, [address] [place] [address] Attending Physician: Fanny Garza MD Admitting Physician: [...] Maintenance,02/10/21 9:06:00 EDT, Route to Pharmacy Electronically, [facility]/pharmacy #[id number], dose increase, 151.7, cm, 07/18/20 17:52:00 EDT, [...]
--- OUTSIDE RECORDS SUMMARY | 2024-01-06 23:43 | XMS_ITS | Continuity of Care Document ---
Author Name Unknown Organization [facility] Address [address] [place] [address]- Care Team Providers Care Sprinkler Helper Name Role Phone Lukasz VALLECILLO, Shelley Primary Care Physician [facility] [facility] [place] 11/30/22 - 12/30/22 [facility] [address] [place] [address]- Attending Physician: Columba Arana Admitting Physician: Columba [...] Team Personnel Name: Shelley Lal NP Position: [facility] PCO Associate Professional Member Role: PCP Address: Address: [address] [facility], 3rd Floor [place], [place] [address] Care Team Related Persons Name: BASILIO MALCOLM Address: home [address] [place] [address] Name: DAKOTA GUZMAN Address: [address] [address] Name: SUDHA BOSWELL Address: home [address] [place] [address]
--- OUTSIDE RECORDS SUMMARY | 2024-01-06 23:43 | XMS_ITS | Continuity of Care Document ---
Author Name Unknown Organization [facility] Address [address] [place] [address]- Care Team Providers Care Machine Quilt Stuffer Name Role Phone Lukasz VALLECILLO, Shelley Primary Care Physician En[place] [facility] Date(s): 07/19/22 - 08/18/22 [facility] [address] [place] [address]- Allergies, Adverse Reactions, Alerts No Known Allergies Immunizations Given and Recorded Vaccine Date Status Refusal Reason SARS-CoV-2 (COVID-19) mRNA BNT-162b2 vac 04/11/21 Recorded SARS-CoV-2 (COVID-19) mRNA BNT-162g7 vac 03/21/21 Recorded influenza virus vaccine, inactivated [...] Maintenance, 06/08/21 11:16:00 EDT, CR Capsule, [id number], d/c prior script, 151, cm, 05/04/21 16:27:00 [...] Team Personnel Name: Shelley Lal NP Address: [address] [place] [address], 3rd [place], [place] [address]
--- OUTSIDE RECORDS SUMMARY | 2024-01-06 23:43 | XMS_ITS | Continuity of Care Document ---
Author Name Unknown Organization [facility] Address [address] [facility] [place] [address] [place] [address]- Care Team Providers Care Executive Communications Manager Name Role Phone Ehsan VALLECILLO, Priyanka Martin Primary Care Physician Encounter 06/13/21 - 07/21/21 [facility] [address] [facility], [address] [place] [address]- Attending Physician: David VALLECILLO, Jesica Saez Admitting [...] Maintenance, 06/08/21 11:16:00 EDT, CR [facility]apsule, [id number], d/c prior script, 151, cm, 05/04/21 16:27:00 [...]
--- OUTSIDE RECORDS SUMMARY | 2024-01-06 23:43 | XMS_ITS | Continuity of Care Document ---
Author Name Unknown Organization [facility] Address [address] [place] [address]- Care Team Providers Care Chemical Instrumentation Officer Name Role Phone Ehsan VALLECILLO, Priyanka Martin Primary Care Physician Encounter [facility] Date(s): 06/20/21 - 06/21/[address] [address] Discharge Disposition: A-D/C Home Attending Physician: Charisse Jeff MD Admitting Physician: Yessica Waters MD Referring Physician: Jeanine Daniels MD Allergies, Adverse Reactions, Alerts Substance Reaction Severity Status NKA Active Immunizations Given and Recorded Vaccine Date Status Refusal Reason SARS-CoV-2 (COVID-19) mRNA BNT-162b2 vac 04/11/21 Recorded SARS-CoV-2 (COVID-19) mRNA BNT-162b2 vac 03/21/21 Recorded influenza virus vaccine, inactivated 1 12/16/15 [facility] tetanus/diphtheria/pertussis, acel(Tdap) 2 03/25/13 Given 1Admin Note: Declined 2Admin Note: VIS 12/18/2011 Medications Acetaminophen Tablet 650 mg, Tablet, By Mouth, Every 4 hours, PRN for Pain , Mild, Temperature Greater than 100.5, Routine, 06/21/21 7:43:00 EDT Start Date: 06/21/21 Stop Date: 06/22/21 Status: Discontinued Miscellaneous Rx Glutathiazone 1000mg, By Mouth, Daily, [...] Active 1Exposure to varnish fumes at work Results Radiology Reports * Exam Date Time Procedure Performing Provider Status 06/21/21 2:41 AM Chest 2 Views Frontal and Lat Patty Mg; Sophie (Verified) Notes: (Chest 2 Views Frontal and Lat) Reason For Exam: Stroke;Other: RESULT: Chest 2 Views Frontal and Lat Chest 2 Views Frontal and Lat Hx of Present Illness: Pt has been experiencing left eye pressure and head pressure since second covid vaccine back in March. Today she started with left arm numbness tingling. Now left ear pain. Pt states she has seen eye MD, neurologist and shank breaker since sx started.; Reason: Other:; Stroke; Clinical Question(s): CHF COMPARISON: 02/17/2008 FINDINGS: LINES AND TUBES: None. LUNGS AND PLEURA: Clear lungs. Normal pulmonary vascularity. No pleural effusion. No pneumothorax. HEART, MEDIASTINUM AND CARMEN: Heart is normal in size. Normal upper mediastinal and hilar contour. BONES AND SOFT TISSUES: Normal. IMPRESSION: Normal chest. WSN: [id number] Ordering Physician: Jeanine Daniels Dictated By: Andrew Dietz MD Dictated Date/Time: 06/21/21 8:16 am Reviewed By: Andrew Dietz MD Signed By: Andrew Dietz MD Signed Date/Time: 06/21/21 8:16 am Transcribed By: LUZ Transcribed Date/Time: 06/21/21 8:15 am Vital Signs Most recent to oldest [Reference Range]: 1 2 3 4 Height 152.2 cm (06/21/21 3:07 PM) 152.2 cm (06/21/21 10:46 AM) 152.2 cm (06/21/21 8:55 AM) 152.2 cm (06/21/21 8:55 AM) Weight 73.6 kg (06/21/21 8:55 AM) 73.6 kg (06/21/21 8:55 AM) 73 kg (06/21/21 8:14 AM) Oxygen Saturation [94-100 %] 94 % 1 (06/21/21 3:07 PM) 100 % (06/21/21 10:46 AM) 96 % (06/21/21 8:55 AM) Pulse Rate [55-90 bpm] 63 bpm (06/21/21 3:07 PM) 66 bpm (06/21/21 10:46 AM) 86 bpm (06/21/21 8:55 AM) 86 bpm (06/21/21 8:55 AM) Body Mass Index [18.5-24.99] 31.77 *>HHI* (06/21/21 8:55 AM) 31.77 *>HHI* (06/21/21 8:55 AM) 31.51 *>HHI* (06/21/21 8:14 AM) Blood Pressure [90-138/55-84 mm Hg] 118/86mm Hg (06/21/21 3:07 PM) 114/85mm Hg (06/21/21 10:46 AM) 128/85mm Hg (06/21/21 8:55 AM) 128/85mm Hg (06/21/21 8:55 AM) Respiratory Rate [16-30 br/min] 16 br/min (06/21/21 3:07 PM) 16 br/min (06/21/21 12:18 PM) 20 br/min (06/21/21 10:46 AM) Temperature [96.8-100.4 DegF] 98.2 DegF (06/21/21 3:07 PM) 98.1 DegF (06/21/21 10:46 AM) 98.4 DegF (06/21/21 8:55 AM) 98.4 DegF (06/21/21 8:55 AM) Mode of Delivery (Oxygen) Room air (06/21/21 3:07 PM) Room air (06/21/21 10:46 AM) Room air (06/21/21 8:55 AM) Blood pressure sites Arm, left (06/21/21 3:07 PM) Arm, left (06/21/21 10:46 AM) Arm, left (06/21/21 8:55 AM) Arm, left (06/21/21 8:55 AM) Temperature Route Oral (06/21/21 3:07 PM) Oral (06/21/21 10:46 AM) Oral (06/21/21 8:55 AM) Oral (06/21/21 8:55 AM) Dry Weight 73 kg (06/21/21 8:55 AM) 73 kg (06/21/21 8:14 AM) 73 kg (06/20/21 7:50 PM) Weight Obtained Via Standing scale (06/21/21 8:55 AM) Standing scale (06/21/21 8:55 AM) Patient/family stated (06/20/21 7:50 PM) Dry Weight Obtained Via Patient/family stated (06/21/21 8:55 AM) Patient/family stated (06/20/21 7:50 PM) 1Result Comment: paul hunt aware of 02 sat Social History Social History Type Response Smoking Status Never (less than 100 in lifetime) entered on: 06/20/21 Sex
--- OUTSIDE RECORDS SUMMARY | 2024-01-06 23:43 | XMS_ITS | Continuity of Care Document ---
Author Name Unknown Organization [facility] Address [address] [place] [address]- Care Team Providers Care Grinder Set Up Operator Gear Tool Name Role Phone Shelley Lal NP Primary Care Physician [place] [facility] [place]01/22 - 11/08/22 [facility] [address] [place] [address]- Encounter Diagnosis Depression, major, recurrent, moderate(Discharge Diagnosis) - 11/01/22 Insomnia(Discharge Diagnosis) - 11/01/22 Attending Physician: Esthela Lomeli Allergies, Adverse Reactions, [...] Dry Weight Start Date: 11/07/22 Status: Ordered hydrOXYzine hydrochloride 10 mg oral tablet 2 tablet = 20 mg, By Mouth, 3 times a day, # 60 tablet, 2 Refills, Acute 11/14/22 9:41:00 EST, 10/15/22 9:41:00 EST, [id number] fill upon patient request [...] Condition Confirmation Course Effective Dates Status Health atus Informant Adjustment disorder with anxious mood [...] Diagnosis Diagnosis Type Effective Dates Health Status inical Service Informant Depression, major, recurrent, moderate Discharge Diagnosis 11/01/22 Insomnia Discharge Diagnosis 11/01/22 Vital Signs Most recent to oldest [Reference Range]: 1 Height 152.2 cm (11/01/22 9:27 AM) Weight 75.3 kg (11/01/22 9:27 AM) Oxygen Saturation [94-100 %] 99 % (11/01/22 9:27 AM) Pulse Rate [55-90 bpm] 69 bpm (11/01/22 9:27 AM) Body Mass Index [18.5-24.99 kg/m2] 32.51 kg/m2 *>HHI* (11/01/22 9:27 AM) Blood Pressure [90-138/55-84 mm Hg] 118/ 76mm Hg (11/01/22 9:27 AM) Temperature [96.8-100.4 DegF] 97.7 DegF (11/01/22 9:27 AM) Mode of Delivery (Oxygen) Room air (11/01/22 9:27 AM) Blood pressure sites Arm, left (11/01/22 9:27 AM) Temperature Route Temporal (11/01/22 9:27 AM) Weight Obtained Via Standing scale (11/01/22 9:27 AM) Social History Social History Type Response Smoking Status Never (less than 100 in lifetime) entered on: 06/20/21 Sex Note * Sydnie Orellana: PERFORM, SIGN, VERIFY Event Display: Patient Education/Instruction Authored Date: [id number] [facility] Clinical Summary Name PHOEBE BURCH Age 52 Years 1970 PCP Shelley Lal NP PCP Visit Date 11/01/2022 09:26:00 Additional Instructions: Scheduled Appointments?? Future Appointments ?*[facility] [address],??[address] ?Phone:??--?Fax:??-- ?Appt. Date:??11/30/2022?10:35 AM ?Scheduled Provider:??Shelley Lal NP Follow-Up Instructions ?? Diagnosis Major depressive disorder, recurrent, moderate; Insomnia, unspecified Medications: Please continue your medications until [...] orders Vital Signs Height 152.2 cm Weight 75.3 kg BMI 32.51 kg/m2 Blood Pressure 118 mm Hg/76 mm Hg Temperature 97.7 DegF Pulse Rate 69 bpm Respiratory Rate 02 Sat Mode of Delivery 99 %/Room air You can now view a summary of your hospital visit from the comfort of your home through a free online portal called [employer]. [employer] is a website that allows you to securely view your medical information including discharge summary, medications and follow-up visits. ??You can alsosend a secure electronic message to your doctor???s office to request appointments, renew medications or just ask a question. You can enroll at [email or web address] or register during your next office visit. [...] primary care provider, you may find a [facility] provider by calling [facility] Namely at [phone]. For information about the plan of care [...] Associate Professional Member Role: PCP Address: Address: [address] [place] [address], 3rd [place] [address]- Care Team Related Persons Name: BASILIO MALCOLM Address: home [address] [place] [address] Name: DAKOTA GUZMAN Address: home [address] [address] Name: SUDHA BOSWELL Address: home [address] [place] [address]
--- OUTSIDE RECORDS SUMMARY | 2024-01-06 23:43 | XMS_ITS | Continuity of Care Document ---
Author Name Unknown Organization [facility] Adult Address [address] [place] [address]- Care Team Providers Care Surgical Physician Assistant Name Role Phone Ehsan VALLECILLO, Priyanka Martin Primary Care Physician [place] [facility] [place](s): 04/27/21 - 05/04/21 [facility] [address] [place] [address]- Encounter Diagnosis Vaccine reaction(Discharge Diagnosis) - 04/27/21 Attending Physician: Priyanka Moser NP Allergies, Adverse Reactions, [...] 9:06:00 EDT, Route to Pharmacy Electronically, [facility]/pharmacy #[id number], dose increase, 151.7, cm, 07/18/20 17:52:00 EDT, [...] Dates Health Status Cl inical Service Informant Vaccine reaction Discharge Diagnosis 04/27/21 Vital Signs Most recent to oldest [Reference Range]: 1 2 Height 151 cm (04/27/21 8:08 AM) 151 cm (04/27/21 7:55 AM) Weight 73.1 kg (04/27/21 7:55 AM) Oxygen Saturation [94-100 %] 99 % (04/27/21 7:55 AM) Pulse Rate [55-90 bpm] 67 bpm (04/27/21 7:55 AM) Body Mass Index [18.5-24.99] 32.06 *>HHI* (04/27/21 7:55 AM) Blood Pressure [90-138/55-84 mm Hg] 116/ 76mm Hg (04/27/21 8:08 AM) 120/76mm Hg (04/27/21 7:55 AM) Mode of Delivery (Oxygen) Room air (04/27/21 7:55 AM) Blood pressure sites Arm, left (04/27/21 8:08 AM) Arm, left (04/27/21 7:55 AM) Weight Obtained Via Standing scale (04/27/21 7:55 AM)
--- OUTSIDE RECORDS SUMMARY | 2024-01-06 23:43 | XMS_ITS | Continuity of Care Document ---
Author Name Unknown Organization [facility] Address [address] [facility], [address] d Floor, [address] [place] [address]- Care Team Providers Care Char Conveyor Tender Cellar Name Role Phone Ehsan RECRUITING ADMINISTRATOR, Priyanka Martin Primary Care Physician Encounter [facility] [place] Date(s): 01/18/21 - 02/17/21 [facility] [address], 3[address], [address] [place] [address]- Allergies, Adverse Reactions, Alerts Substance Reaction Severity [...] Maintenance,02/10/21 9:06:00 EDT, Route to Pharmacy Electronically, [facility]/pharmacy #[id number], dose increase, 151.7, cm, 07/18/20 17:52:00 EDT, [...]
--- OUTSIDE RECORDS SUMMARY | 2024-01-06 23:43 | XMS_ITS | Continuity of Care Document ---
Author Name Unknown Organization [facility] Adult Address [address] [place] [address]- Care Team Providers Care Sap Bpc Architect Name Role Phone David VALLECILLO, Jesica Saez Primary Care Physicia n En[place] [facility] [place] Date(s[place] 07/14/21 - 08/13/21 [facility] Adult [address] [place] [address]- Attending Physician: Columba Arana Admitting Physician: Columba [...] Maintenance, 06/08/21 11:16:00 EDT, CR Capsule, [id number], d/c prior script, 151, cm, 05/04/21 16:27:00 [...]
--- OUTSIDE RECORDS SUMMARY | 2024-01-06 23:43 | XMS_ITS | Continuity of Care Document ---
Author Name Unknown Organization [facility] Adult Address [address] [place] [address]- Care Team Providers Care Window Shade Estimator Name Role Phone Shelley Lal NP Primary Care Physician [place] [facility] [place]15[place] - 10/22/22 [facility] Adult [address] [place] [address]- Encounter Diagnosis Anxiety and depression(Discharge Diagnosis) - 10/15/22 Elevated blood pressure reading(Discharge Diagnosis) - 10/15/22 Attending Physician: Esthela Lomeli Referring Physician: Shelley Lal NP Allergies, Adverse Reactions, [...] Acute 11/14/22 9:41:00 EST, 10/15/22 9:41:00 EST, [facility]/pharmacy #[id number], Partial fill upon patient request if the [...] Refills, Maintenance, 06/08/21 11:16:00 EDT, CR Capsule, [facility]/pharmacy #[id number], d/c prior script, 151, cm, 05/04/21 16:27:00 EDT, Height Start Date: 06/08/21 Stop Date: 12/05/21 Status: Ordered Wellbutrin SR 150 mg/12 hours oral tablet, extended release 1 tablet = 150 mg, By Mouth, 2 times a day, # 60 tablet, 1 Refills, Maintenance, 10/15/22 9:40:00 EST, ER Tablet, [facility]/pharmacy #[id number], Partial fill upon patient request if the prescription is for a schedule II opioid drug., 152.2, cm, 10/15/22 9:40:00... Start Date: 10/15/22 Status: Ordered Problem List Condition Confirmation Course Effective Dates Status Health at Informant Adjustment disorder with anxious mood [...] Service Informant Anxiety and depression Discharge Diagnosis 10/15/22 Elevated blood pressure reading Discharge Diagnosis 10/15/22 Vital Signs Most recent to oldest [Reference Range]: 1 2 Height 152.2 cm (10/15/22 9:40 AM) 152.2 cm (10/15/22 8:47 AM) Weight 74.9 kg (10/15/22 8:47 AM) Oxygen Saturation [94-100 %] 98 % (10/15/22 8:47 AM) Pulse Rate [55-90 bpm] 86 bpm (10/15/22 8:47 AM) Body Mass Index [18.5-24.99 kg/m2] 32.33 kg/m2 *>HHI* (10/15/22 8:47 AM) Blood Pressure [90-138/55-84 mm Hg] 141/ 90mm Hg *H* (10/15/22 9:40 AM) 150/88mm Hg *H* (10/15/22 8:47 AM) Temperature [96.8-100.4 DegF] 98.9 DegF (10/15/22 8:47 AM) Mode of Delivery (Oxygen) Room air (10/15/22 8:47 AM) Blood pressure sites Arm, right (10/15/22 9:40 AM) Arm, left (10/15/22 8:47 AM) Temperature Route Temporal (10/15/22 8:47 AM) Weight Obtained Via Standing scale (10/15/22 8:47 AM) Social History Social History Type Response Smoking Status Never (less than 100 in lifetime) entered on: 06/20/21 Sex Note * Loida Ross: PERFORM, SIGN, VERIFY Event Display: Patient Education/Instruction Authored Date: [facility] *[facility] Clinical Summary Name PHOEBE BURCH Age 52 Years 1970 PCP Lukasz PRECISION MACHINIST, Shelley PCP Visit Date 10/15/2022 08:44:00 Additional Instructions: Scheduled Appointments?? Future Appointments ?*[facility] ?[address],??[address] ?Phone:??--?Fax:??-- ?Appt. Date:??10/22/2022?9:20 AM ?Scheduled Provider:??David NUNEZ, Esthela Servin ?*[facility] ?[address],??[address] ?Phone:??--?Fax:??-- ?Appt. Date:??11/30/2022?10:35 AM ?Scheduled Provider:??Lukasz VALLECILLO , Shelley Follow-Up Instructions ?? Diagnosis Medications: Please continue your medications until treatment is completed or stopped by your provider. Discuss any questions related to medications with your provider. Medications to Continue with No Changes These medications were not printed or sent to your pharmacy Miscellaneous Rx querectine 20mg Oral Daily. Next [...] orders Vital Signs Height 152.2 cm Weight 74.9 kg BMI 32.33 kg/m2 Blood Pressure 150 mm Hg/88 mm Hg Temperature 98.9 DegF Pulse Rate 86 bpm Respiratory Rate 02 Sat Mode of Delivery 98 %/Room air You can now view a summary of your hospital visit from the comfort of your home through a free online portal called [employer]. [employer] is a website that allows you to securely view your medical information including discharge summary, medications and follow-up visits. ??You can alsosend a secure electronic message to your doctor???s office to request appointments, renew medications or just ask a question. You can enroll at [email or web address] or register during your next office [...] primary care provider, you may find a [facility] provider by calling [facility] [employer] at [phone]. For information about the plan of care [...] Team Personnel Name: Shelley Lal NP Position: [facility] PCO Associate Professional Member Role: PCP Address: Address: [address] [facility], 3rd [place] [address]- Care Team Related Persons Name: MALCOLMBASILIO Address: home [address] [place] [address] Name: DAKOTA GUZMAN Address: home [address] [address] Name: SUDHA BOSWELL Address: home [address] [place] [address]
--- OUTSIDE RECORDS SUMMARY | 2024-01-06 23:43 | XMS_ITS | Continuity of Care Document ---
Author Name Unknown Organization [facility] Adult Address [address] [place] [address]- Care Team Providers Care C S S Representative Name Role Phone Lukasz VALLECILLO, Shelley Primary Care Physician [place] [facility] [place]23 [place] 08/04/23 [facility] [address] [place] [address]- Allergies, Adverse Reactions, Alerts Substance Reaction Severity [...] Unknown, 1 Refills, Maintenance, 05/20/23 19:33:00 EDT, [facility], 149.86, cm, 04/10/23 6:49:00 EDT, Height, 75.1, kg, 04/10/23 6:49:00 EDT, Dry Weight Start Date: 05/20/23 Status: Ordered prazosin 1 mg oral capsule 1, capsule, By Mouth, Daily at bedtime, PRN, # 30 capsule, Refills 1, Maintenance, NEEDED, 04/24/23 11:38:00 EDT, Route to Pharmacy Electronically, [facility], 149.86, cm, 04/10/23 6:49:00 EDT, Height, 75.1, [...] Associate Professional Member Role: PCP Address: Address: [address] [place] [address], 3rd [address] [place], [place] [address] Care Team Related Persons Name: BASILIO MALCOLM Address: home [address] [place] [address] Name: DAKOTA GUZMAN Address: home [address] [address] Name: SUDHA GUZMAN Address: home [address] [place] [address]
--- OUTSIDE RECORDS SUMMARY | 2024-01-06 23:43 | XMS_ITS | Continuity of Care Document ---
Author Name Unknown Organization [facility] Address [address] [place] [address]- Care Team Providers Care Vending Machine Repairer Name Role Phone Ehsan VALLECILLO, Priyanka Martin Primary Care Physician [place] [facility] [place]24/[place] - 02/11/[address] [address]- [facility] Attending Physician: Adriana Angeles DO Admitting Physician: Adriana Angeles DO Referring Physician: Adriana Angeles DO Allergies, Adverse Reactions, Alerts Substance Reaction Severity [...] 8:16:00 EST, 01/15/20 8:16:00 EST, [facility], [id number], tried sum... Start Date: 01/15/20 Stop Date: [...]
--- OUTSIDE RECORDS SUMMARY | 2024-01-06 23:43 | XMS_ITS | Continuity of Care Document ---
Author Name Unknown Organization [facility] Address [address] [facility] [place] [address]- Care Team Providers Care Store Clerk Name Role Phone Esthela Lomeli Primary Care Physician Encounter 10/16/23 - 10/23/23 [facility] [address], [facility] [address] [place] [address]- Attending Physician: Lukasz VALLECILLO, Shelley Admitting Physician: Lukasz VALLECILLO, Shelley Referring Physician: Lukasz VALLECILLO, Shelley Allergies, Adverse Reactions, Alerts Substance Reaction Severity [...] Unknown, 1 Refills, Maintenance, 05/20/23 19:33:00 EDT, [facility]2634, 149.86, cm, 04/10/23 6:49:00 EDT, Height, 75.1, kg, 04/10/23 6:49:00 EDT, Dry Weight Start Date: 05/20/23 Status: Ordered prazosin 1 mg oral capsule 1, capsule, By Mouth, Daily at bedtime, PRN, # 30 capsule, Refills 1, Maintenance, NEEDED, 04/24/23 11:38:00 EDT, Route to Pharmacy Electronically, [facility] 20599, 149.86, cm, 04/10/23 6:49:00 EDT, Height, 75.1, [...] 1 Refills, Maintenance, 07/09/24 9:50:00 EDT, Tablet, [facility]/pharmacy #[id number], Partial fill upon patient request if the prescription is for a schedule II opioid drug., 149.66, cm, 10/09/23 14:54:00 EST, Maldonado... Start Date: 07/09/24 Status: Ordered sertraline 50 mg oral tablet 1 tablet = 50 mg, By Mouth, Daily, # 90 tablet, 0 Refills, Hard Stop 07/09/24 9:50:00 EDT, :49:00 EDT, Tablet, [facility], Partial fill upon [...] Exam Date Time Procedure Performing Provider Status 10/16/23 11:45 AM MM Digital Mammo Screening Jesica Oliver; Auth (Verified) Notes: (MM Digital Mammo Screening) Reason For Exam: Screening;Screening RESULT: MM Digital Mammo Screening PROCEDURE: MM Digital Mammo Screening INDICATION: Screening for breast cancer. Reduction in 2022 COMPARISON: 06/26/2021 and 09/23/2018 TECHNIQUE: Full-field digital CC and MLO 3D tomosynthesis images of both breasts were acquired. Computer-aided detection (CAD) was utilized in the interpretation of this study. DENSITY: The breast tissue contains scattered areas of fibroglandular density. FINDINGS: No suspicious masses, suspicious microcalcifications, or areas of architectural distortion are seen in either breast to suggest malignancy. IMPRESSION: No mammographic evidence of malignancy. RECOMMENDATION: Annual mammographic screening BI-RADS: 1 (Negative) Lay letter mailed to patient WSN: [id number] Ordering Physician: Shelley Lal Dictated By: Andrew Klein MD Dictated Date/Time: 10/16/23 12:54 pm Reviewed By: Andrew Klein MD Signed By: Andrew Klein MD Signed Date/Time: 10/16/23 12:54 pm Transcribed By: [employer] Superintendent Date/Time: 10/16/23 12:50 pm Birads: Social History Social History Type Response Smoking Status Never (less than 100 in lifetime) entered on: 06/20/21 Sex Patient Care team information Care Team Personnel Name: Esthela Lomeli Position: S PCO Associate Professional Member Role: PCP Address: Address: [address] [place] [address]. [address]rd [place] [address]- Care Team Related Persons Name: BASILIO MALCOLM Address: home [address] [place] [address] Name: DAKOTA GUZMAN Address: home [address] [address] Name: SUDHA GUZMAN Address: home [address] [place] [address]
--- OUTSIDE RECORDS SUMMARY | 2024-01-06 23:43 | XMS_ITS | Continuity of Care Document ---
Author Name Unknown Organization [facility] ter Address [address] [place] [address]- Care Team Providers Care Supervisor Heading Name Role Phone Lukasz VALLECILLO, Shelley Primary Care Physician [place] [facility] [place]13[place] - 06/16/[address] [address] Attending Physician: Sasha Carrasco MD Admitting Physician: Sasha Carrasco MD Referring Physician: Sasha Carrasco MD Allergies, Adverse Reactions, Alerts No Known [...]
--- OUTSIDE RECORDS SUMMARY | 2024-01-06 23:43 | XMS_ITS | Continuity of Care Document ---
Author Name Unknown Organization [facility] Adult Address [address] [place] [address]- Care Team Providers Care Paunch Trimmer Name Role Phone Esthela Lomeli Primary Care Physician [place] [facility] [place] 10/09/23 - 11/08/23 [facility] Adult [address] [place] [address]- Attending Physician: Columba Arana Admitting Physician: Columba [...] Unknown, 1 Refills, Maintenance, 05/20/23 19:33:00 EDT, [facility] 02168, 149.86, cm, 04/10/23 6:49:00 EDT, Height, 75.1, kg, 04/10/23 6:49:00 EDT, Dry Weight Start Date: 05/20/23 Status: Ordered prazosin 1 mg oral capsule 1, capsule, By Mouth, Daily at bedtime, PRN, # 30 capsule, Refills 1, Maintenance, NEEDED, 04/24/23 11:38:00 EDT, Route to Pharmacy Electronically, [facility] 70449, 149.86, cm, 04/10/23 6:49:00 EDT, Height, 75.1, [...] 1 Refills, Maintenance, 07/09/24 9:50:00 EDT, Tablet, [facility]/pharmacy #[id number], Partial fill upon patient request if the prescription is for a schedule II opioid drug., 149.66, cm, 10/09/23 14:54:00 EST, Heigh... Start Date: 07/09/24 Status: Ordered sertraline 50 [...] Care Team Personnel Name: Esthela Lomeli Position: [facility] PCO Associate Professional Member Role: PCP Address: Address: [address] [place] [address]. 3rd [place] [address]- Care Team Related Persons Name: BASILIO MALCOLM Address: home [address] [place] [address] Name: DAKOTA GUZMAN Address: home [address] [facility] [address] [place] [address] Name: SUDHA GUZMAN Address: home [address] [place] [address]
--- OUTSIDE RECORDS SUMMARY | 2024-01-06 23:43 | XMS_ITS | Continuity of Care Document ---
Author Name Unknown Organization [facility] Address [address] [place] [address]- Care Team Providers Care Railway Yard Assistant Name Role Phone Ehsan VALLECILLO, Priyanka Martin Primary Care Physician En[place] [facility] [place](s): 07/18/20 - 08/17/20 [facility] [address] [place] [address]- [facility] Attending Physician: Colmuba Arana Admitting Physician: Columba Arana Referring Physician: [...]
--- OUTSIDE RECORDS SUMMARY | 2024-01-06 23:43 | XMS_ITS | Continuity of Care Document ---
Author Name Unknown Organization [facility] ter Address [address] [place] [address]- Care Team Providers Care Florist Supplies Salesperson Name Role Phone Ehsan CERT OCCUPATIONAL THERAPY ASST, Priyanka Martin Primary Care Physician [place] [facility] [place] 01/13/20 - 08/01/[address] [address]- [facility] Attending Physician: Adriana Angeles DO Admitting Physician: [...]
--- OUTSIDE RECORDS SUMMARY | 2024-01-06 23:43 | XMS_ITS | Continuity of Care Document ---
Author Name Unknown Organization [facility] Adult Address [address] [place] [address]- Care Team Providers Care Franchise Manager Name Role Phone Lukasz VALLECILLO, Shelley Primary Care Physician En[place] [facility] [place] Date(s): 04/06/22 - 05/26/22 [facility] Adult [address] [place], [place] [address] Attending Physician: Not on Staff, Attending MD [...]
--- OUTSIDE RECORDS SUMMARY | 2024-01-06 23:43 | XMS_ITS | Continuity of Care Document ---
Author Name Unknown Organization [facility] Address [address], [address], [address] [place] [address]- Care Team Providers Care Meat Pumper Name Role Phone Ehsan VALLECILLO, Priyanka Martin Primary Care Physician [place] [facility] [place]s): 02/18/20 - 03/20/20 [facility] [address], [address], [address] [place] [address]- [facility] Attending Physician: Brian Siegel MD Admitting Physician: Brian Siegel MD Allergies, Adverse Reactions, [...] 8:16:00 EST, 01/15/20 8:16:00 EST, Tablet, [facility], tried sum... Start Date: 01/15/20 Stop Date: [...]
--- OUTSIDE RECORDS SUMMARY | 2024-01-06 23:43 | XMS_ITS | Continuity of Care Document ---
Author Name Unknown Organization [facility] Adult Address [address] [place] [address]- Care Team Providers Care Ping Pong Table Assembler Name Role Phone Lukasz VALLECILLO, Shelley Primary Care Physician [place] [facility] [place] 05/06/22 [facility] Adult [address] [place] [address]- Allergies, Adverse Reactions, Alerts No Known Allergies [...] Maintenance, 06/08/21 11:16:00 EDT, CR Capsule, [id number], d/c prior script, 151, cm, 05/04/21 16:27:00 [...]
--- OUTSIDE RECORDS SUMMARY | 2024-01-06 23:43 | XMS_ITS | Continuity of Care Document ---
Author Name Unknown Organization [facility] Adult Address [address] [place] [address]- Care Team Providers Care A Operator Name Role Phone Lukasz VALLECILLO, Shelley Primary Care Physician [place] [facility] [place](s): 04/02/22 - 05/02/22 [facility] [address] [place] [address]- Allergies, Adverse Reactions, Alerts No Known Allergies Immunizations Given and Recorded Vaccine Date Status Refusal Reason SARS-CoV-2 (COVID-19) mRNA BNT-162b2 vac 04/11/21 Recorded SARS-CoV-2 (COVID-19) mRNA BNT-162q1 vac 03/21/21 Recorded influenza virus vaccine, inactivated [...] Maintenance, 06/08/21 11:16:00 EDT, CR Capsule, [id number], d/c prior script, 151, cm, 05/04/21 16:27:00 [...]
--- OUTSIDE RECORDS SUMMARY | 2024-01-06 23:44 | XMS_ITS | Continuity of Care Document ---
Author Name Unknown Organization [facility] ter Address [address] [place] [id number] Care Team Providers Care Billet Header Name Role Phone Lukasz VALLECILLO, Shelley Primary Care Physician [phone] Encounter [facility] [place] Date(s): 04/10/23 - 04/10/[address] [address] Discharge Disposition: A-D/C Home Attending Physician: Sami Garcia MD Admitting Physician: Sami Garcia MD Referring Physician: Sami Garcia MD Allergies, Adverse Reactions, Alerts Substance Reaction [...] bedtime, PRN, # 30 capsule, Refills 1, Tot. Refills 1, Maintenance, NEEDED, 03/19/23 8:36:00 EDT, Route to Pharmacy Electronically, [facility]/pharmacy #[id number], 152.2, cm, 02/20/23 9:22:00 EDT, Height, 73, kg, 06/21/21 10:58:0... Start Date: 03/19/23 Status: Ordered Problem List Condition Confirmation Course [...] to oldest [Reference Range]: 1 2 3 Height 149.86 cm (04/10/23 6:49 AM) 149.86 cm (04/04/23 1:39 PM) Weight 75.1 kg (04/10/23 6:49 AM) 75.00 kg (04/04/23 1:39 PM) Oxygen Saturation [94-100 %] 96 % (04/10/23 2:00 PM) 95 % (04/10/23 1:45 PM) 94 % (04/10/23 1:30 PM) Pulse Rate [55-90 bpm] 78 bpm (04/10/23 6:49 AM) Body Mass Index [18.5-24.99 kg/m2] 33.44 kg/m2 *>HHI* (04/10/23 6:49 AM) 33.4 kg/m2 *>HHI* (04/04/23 1:39 PM) Blood Pressure [90-138/55-84 mm Hg] 98/71mm Hg (04/10/23 2:00 PM) 99/61mm Hg (04/10/23 1:45 PM) 94/61mm Hg (04/10/23 1:30 PM) Respiratory Rate [16-30 br/min] 15 br/min *L* (04/10/23 2:00 PM) 18 br/min (04/10/23 1:45 PM) 15 br/min *L* (04/10/23 1:30 PM) Temperature [96.8-100.4 DegF] 97.2 DegF (04/10/23 1:30 PM) 97.3 DegF (04/10/23 11:45 AM) 98.5 DegF (04/10/23 6:49 AM) Liters per Minute 2 L/min (04/10/23 12:45 PM) 2 L/min (04/10/23 12:40 PM) 2 L/min (04/10/23 12:35 PM) Mode of Delivery (Oxygen) Room air (04/10/23 2:00 PM) Room air (04/10/23 1:45 PM) Room air (04/10/23 1:30 PM) Blood pressure sites Arm, right (04/10/23 2:00 PM) Arm, right (04/10/23 1:45 PM) Arm, right (04/10/23 1:30 PM) Temperature Route Temporal (04/10/23 1:30 PM) Temporal (04/10/23 11:45 AM) Temporal (04/10/23 6:49 AM) Dry Weight 75.1 kg (04/10/23 6:49 AM) 75.00 kg (04/04/23 1:39 PM) Weight Obtained Via Standing scale (04/10/23 6:49 AM) Dry Weight Obtained Via Standing scale (04/10/23 6:49 AM) Patient/family stated (04/04/23 1:39 PM) Social History Social History Type Response Smoking Status Never (less than 100 in lifetime) entered on: 06/20/21 Sex Note * Мария Gil RN: PERFORM Event Display: Discharge/Transfer Note Hospital Authored Date: [id number] Nursing Discharge Note Entered On: 04/10/2023 19:27 EDT Performed On: 04/10/2023 18:45 EDT by Мария Gil RN Nursing Discharge Note 2 Discharge Time : 04/10/2023 18:45 EDT Discharge Level of Care at Discharge : Home/Nursing Home/Foster Care Web Site Designer Utilized : No AMA Form Signed : No Patient Left Unit Via : Wheelchair Patient Accompanied Off Unit with : Responsible adult DC Instructions Provided & Signed by Pt : Yes Patient Understands D/C Instructions : Yes Verbalized Understanding of D/C Plan By : Family, Patient, Responsible adult Patient Instructions Discharge Signed : Yes Did Pt have Specialty Bed or Wound Vac : No Мария Gil RN - 04/10/2023 19:16 EDT * Мария Gil RN: PERFORM Event Display: Patient Education/Instruction Authored Date: [id number] Inpatient Adult Discharge Instructions [address] [address] Name: PHOEBE BURCH : 1970 Visit: 04/10/2023 05:51:00 Current Date: 04/10/2023 17:38 Account: [id number] Inpatient Adult Discharge Instructions We would like to thank you for allowing us to assist you with your healthcare needs. The following includes patient education materials and information regarding your injury/illness. Our entire staffstrives to provide an excellent experience for our patients and their families. PLEASE ENSURE YOU FOLLOW-UP PER THE INSTRUCTIONS BELOW! ?? YOUR OPINION IS IMPORTANT TO US! Please complete the survey you may receive by mail or email. Your feedback will be used to make improvements to the healthcare experiences of our patients and their families. Surveys are administered by [employer] ?? If further treatment with your primary care physician or another doctor is recommended, it is important for you to keep the appointment. Call your primary care physician or return to the Emergency Department immediately if your condition worsens, fails to improve, or new symptoms develop. If you need to find a doctor, you can call [facility] [employer] [facility] for a referral at [phone] or toll free at [phone] or log in to [email or web address].. ?? You can view and manage your care through the patient portal or by using a health care timothy of your choosing. [employer] is a website that allows you to securely view your medical information including your hospital discharge summary, office visit summaries, medications and follow-up visits. You can also request appointments, renew medications, and request access to your medical information using a health care timothy of your choosing, or just ask a question. You can enroll at [email or web address] or register during your next office visit. You have been discharged from [facility], Patient Care Unit: [facility]. If you have any questions regarding these instructions after you leave, please call us and we will be happy to assist you. 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 You may have had other tests and procedures not included in this list. Please discuss all test results with your provider. Primary Care Provider Shelley Lal NP Advance Directive . Discharge Vitals Temperature: 97.2 DegF Height: 149.86 cm Pulse Rate: 78 bpm Weight: 75.1 kg Respiratory Rate:??15 br/min??Low Body Mass Index:??33.44 kg/m2??Critical Systolic Blood Pressure: 98 mm Hg Body surface area: 1.77 Diastolic Blood Pressure: 71 mm Hg ?? Oxygen Saturation: 96 % ?? Studies Pending All tests and labs ordered during this hospital stay have been completed unless listed below. Please discuss all pending results with your provider listed above in these instructions. ?? Pathology Tissue Request ([id number]) What to do next Instructions From Your Doctor Discharge Orders Instructions from your Care Team Refer to attached MD postoperative discharge instructions Call MD with any questions or concerns Surgical drains to bulb suction. Empty MALI drains 3X/day, & record volume on form provided. Get out of bed with assistance &??ambulate 5 minutes every 2 hours while awake Follow-up appointment??with MD in??1 week. Call ??[phone] for appointment Abdominal & Breast??binders ON??at all times, except to shower. May shower in 48 hours, per MD. Change gauze abdominal dressings??daily & as needed Do NOT change clear tegaderm dressings. Leave those in place. Pt already has??prescriptions : Oxycodone, Valium, & Keflex Release the binders??& reapply 3X/day. Apply antibiotic ointment to umbilicus daily Instruct patient to expect significant drainage from liposuction sites over night Call MD office tomorrow for instructions regarding urine catheter removal. ?? Discharge Medications PHOEBE BURCH :1970 Visit Date:04/10/2023 Medications: Please continue your medications until treatment is completed or stopped by your provider. Medications not listed below should be discontinued. Discuss any questions related to medications with your provider. What How Much When Instructions Next Dose Unchanged BuPROpion (BuPROPion (Eqv- Wellbutrin SR) 150 mg/ 12 hours oral tablet, extended release) 1 tab(s) Oral Twice a day Unchanged Prazosin (prazosin 1 mg oral capsule) 1 capsule Oral Daily at Bedtime as needed for NEEDED Test Results Below is a partial list of the most recent Laboratory test results done prior to this discharge. You may have had other tests and procedures not included in this list. Please discuss all test resultswith your provider. Allergies (NKA means No Known Allergies) Other Environmental Allergy??(dogs, pollen) Problems Active Problems??(13) Adjustment disorder with anxious mood?? Advanced maternal age?? Brain concussion?? Brain injury?? Depression, major, recurrent, moderate?? Elevated BP?? Family history of diabetes mellitus type 2?? Heavy periods?? Insomnia?? Migraine headache?? Obese class I?? Rotator cuff tendinitis?? Uterine fibroid?? Education Materials Below is the list of Educational Leaflet Providered with your Discharge Instructions. Surgery Leg Bag and Andrade Catheter Care Discharge Instructions?? Andrade Catheter Care?? Surgery Medical Daystay Surgical Overnight Discharge Instructions?? Valuables and Belongings I fully understand and agree that [facility] accepts no responsibility for all my personal property including clothing, toilet articles, radios, jewelry, dentures, hearing aids, rings, money, or any other property that is in my possession or is brought to me after admission. I understand certain valuables may be placed in a hospital safe for a short period of time. I understand that the hospital is not liable for loss or damage due to accident, fire, or other natural occurrence while said property is in the safe. I accept full responsibility for any personal property that I keep with me, and will not hold the hospital responsible in case of loss or disappearance. I acknowledge that i have been encouraged to send valuables and belongings home. ?? Review of Valuable and Belonging List: With patient Date for Pt to Sign Valuables/Belongings: 04/10/23 06:49:00 ?? Valuables & Belongings ?? Clothes Electronic devices Jewelry Monetary Items Personal devices Miscellaneous Medications (Valuables) Valuables at Bedside Pants, Shirt, Shoes, Undergarments ? Valuables Sent Home ? Valuables Sent to Security ? Other Discharge Information ? Pulmonary Rehab Status?? Pulmonary Rehab Discharge Status?? Respiratory Rate:??15 br/min??Low ? Common Emergency Awareness Tips IS IT A STROKE? Act FAST and Check for these signs: FACE Does the face look uneven? ARM Does one arm drift down? SPEECH Does their speech sound strange? TIME Call at any sign of stroke ?? Heart Attack Signs Chest discomfort: Most heart attacks involve discomfort in the center of the chest and lasts more than a few minutes, or goes away and comes back. It can feel like uncomfortable pressure, squeezing, fullness or pain. Discomfort in upper body: Symptoms can include pain or discomfort in one or both arms, back, neck, jaw or stomach. Shortness of breath: With or without discomfort. Other signs: Breaking out in a cold sweat, nausea, or lightheaded. Remember, MINUTES DO MATTER. If you experience any of these heart attack warning signs, call to get immediate medical attention! ?? Smoking can increase your chances of developing chronic health problems and can cause harmful effects to other family members in your house. If you smoke, you are strongly encouraged to quit. Please call [facility] [employer] Link at [phone] or [phone] [facility]SELECT [facility] ([phone]) or log in to [email or web address] for referrals to smoking cessation programs. ?? 675 Suicide & Crisis Lifeline is available 17/06 if you or someone you know needs to find a reason to keep living. By calling 651 you'll be connected to a skilled, trained counselor at a crisis center in your area. INPATIENT DISCHARGE INSTRUCTIONS SIGNATURE FLAKITO PHOEBE BURCH Location:[facility] Registration Date and Time:04/10/2023 05:51 EDT Primary Care Physician: Shelley Lal NP, Attending Physician: Sami Garcia MD, PHOEBE ACOSTA, have received the above patient education materials/instructions and have verbalized understanding. If ambulance or transport services are being used I further acknowledge being given a choice of service. ?? If you need to contact me, please call me at this number: . Patient/Tangled Yarn Worker Name: Patient/Tangled Yarn Worker Signature: Relationship to Patient: Witness Name/Signature: Date: * Мария Gil RN: PERFORM Event Display: Patient Education/Instruction Authored Date: [id number] Inpatient Adult Discharge Instructions [address] [address] Name: PHOEBE BURCH : 1970 Visit: 04/10/2023 05:51:00 Current Date: 04/10/2023 11:59 Account: [id number] Inpatient Adult Discharge Instructions We would like to thank you for allowing us to assist you with your healthcare needs. The following includes patient education materials and information regarding your injury/illness. Our entire staffstrives to provide an excellent experience for our patients and their families. PLEASE ENSURE YOU FOLLOW-UP PER THE INSTRUCTIONS BELOW! ?? YOUR OPINION IS IMPORTANT TO US! Please complete the survey you may receive by mail or email. Your feedback will be used to make improvements to the healthcare experiences of our patients and their families. Surveys are administered by [employer]. ?? If further treatment with your primary care physician or another doctor is recommended, it is important for you to keep the appointment. Call your primary care physician or return to the Emergency Department immediately if your condition worsens, fails to improve, or new symptoms develop. If you need to find a doctor, you can call [facility] [employer] for a referral at [phone] or toll free at [phone] or log in to [email or web address].. ?? You can view and manage your care through the patient portal or by using a health care timothy of your choosing. [employer] is a website that allows you to securely view your medical information including your hospital discharge summary, office visit summaries, medications and follow-up visits. You can also request appointments, renew medications, and request access to your medical information using a health care timothy of your choosing, or just ask a question. You can enroll at [email or web address] or register during your next office visit. You have been discharged from [facility], Patient Care Unit: [facility]. If you have any questions regarding these instructions after you leave, please call us and we will be happy to assist you. [facility] Your Care Team Attending Physician Sami Garcia MD Discharging Providers Sami Garcia MD Reason for Your Visit MACROMASTIA REDUNDANT SKIN CS DS Tests Performed Below is a partial list of the tests performed during your hospitalization. You may have had other tests and procedures not included in this list. Please discuss all test results with your provider. Primary Care Provider Shelley Lal NP Advance Directive . Discharge Vitals Temperature: 98.5 DegF Height: 149.86 cm Pulse Rate: 78 bpm Weight: 75.1 kg Respiratory Rate: 16 br/min Body Mass Index:??33.44 kg/m2??Critical Systolic Blood Pressure: 125 mm Hg Body surface area: 1.77 Diastolic Blood Pressure:??86 mm Hg??High ?? Oxygen Saturation: 100 % ?? Studies Pending All tests and labs ordered during this hospital stay have been completed unless listed below. Please discuss all pending results with your provider listed above in these instructions. ?? No incomplete studies found What to do next Instructions From Your Doctor Discharge Orders Instructions from your Care Team Refer to attached MD postoperative discharge instructions Call MD with any questions or concerns Surgical drains to bulb suction. Empty MALI drains 3X/day, & record volume on form provided. Get out of bed with assistance &??ambulate 5 minutes every 2 hours while awake Follow-up appointment??with MD in??1 week. Call ??[phone] for appointment Abdominal & Breast??binders ON??at all times, except to shower. May shower in 48 hours, per MD. Change gauze abdominal dressings??daily & as needed Do NOT change clear tegaderm dressings. Leave those in place. Pt already has??prescriptions : Oxycodone, Valium, & Keflex Release the binders??& reapply 3X/day. Apply antibiotic ointment to umbilicus daily Instruct patient to expect significant drainage from liposuction sites over night ?? Discharge Medications PHOEBE BURCH :1970 Visit Date:04/10/2023 Medications: Please continue your medications until treatment is completed or stopped by your provider. Medications not listed below should be discontinued. Discuss any questions related to medications with your provider. What How Much When Instructions Next Dose Unchanged BuPROpion (BuPROPion (Eqv- Wellbutrin SR) 150 mg/ 12 hours oral tablet, extended release) 1 tab(s) Oral Twice a day Unchanged Prazosin (prazosin 1 mg oral capsule) 1 capsule Oral Daily at Bedtime as needed for NEEDED Test Results Below is a partial list of the most recent Laboratory test results done prior to this discharge. You may have had other tests and procedures not included in this list. Please discuss all test resultswith your provider. Allergies (NKA means No Known Allergies) Other Environmental Allergy??(dogs, pollen) Problems Active Problems??(13) Adjustment disorder with anxious mood?? Advanced maternal age?? Brain concussion?? Brain injury?? Depression, major, recurrent, moderate?? Elevated BP?? Family history of diabetes mellitus type 2?? Heavy periods?? Insomnia?? Migraine headache?? Obese class I?? Rotator cuff tendinitis?? Uterine fibroid?? Education Materials Below is the list of Educational Leaflet Providered with your Discharge Instructions. Surgery Medical Daystay Surgical Overnight Discharge Instructions?? Valuables and Belongings I fully understand and agree that [facility] accepts no responsibility for all my personal property including clothing, toilet articles, radios, jewelry, dentures, hearing aids, rings, money, or any other property that is in my possession or is brought to me after admission. I understand certain valuables may be placed in a hospital safe for a short period of time. I understand that the hospital is not liable for loss or damage due to accident, fire, or other natural occurrence while said property is in the safe. I accept full responsibility for any personal property that I keep with me, and will not hold the hospital responsible in case of loss or disappearance. I acknowledge that i have been encouraged to send valuables and belongings home. ?? Review of Valuable and Belonging List: With patient Date for Pt to Sign Valuables/Belongings: 04/10/23 06:49:00 ?? Valuables & Belongings ?? Clothes Electronic devices Jewelry Monetary Items Personal devices Miscellaneous Medications (Valuables) Valuables at Bedside Pants, Shirt, Shoes, Undergarments ? Valuables Sent Home ? Valuables Sent to Security ? Other Discharge Information ? Pulmonary Rehab Status?? Pulmonary Rehab Discharge Status?? Respiratory Rate: 16 br/min ? Common Emergency Awareness Tips IS IT A STROKE? Act FAST and Check for these signs: FACE Does the face look uneven? ARM Does one arm drift down? SPEECH Does their speech sound strange? TIME Call at any sign of stroke ?? Heart Attack Signs Chest discomfort: Most heart attacks involve discomfort in the center of the chest and lasts more than a few minutes, or goes away and comes back. It can feel like uncomfortable pressure, squeezing, fullness or pain. Discomfort in upper body: Symptoms can include pain or discomfort in one or both arms, back, neck, jaw or stomach. Shortness of breath: With or without discomfort. Other signs: Breaking out in a cold sweat, nausea, or lightheaded. Remember, MINUTES DO MATTER. If you experience any of these heart attack warning signs, call to get immediate medical attention! ?? Smoking can increase your chances of developing chronic health problems and can cause harmful effects to other family members in your house. If you smoke, you are strongly encouraged to quit. Please call [facility] [employer] Link at [phone] or [phone] or log in to [email or web address] for referrals to smoking cessation programs. ?? 285 Suicide & Crisis Lifeline is available 17/06 if you or someone you know needs to find a reason to keep living. By calling 073 you'll be connected to a skilled, trained counselor at a crisis center in your area. INPATIENT DISCHARGE INSTRUCTIONS SIGNATURE PAGE PHOEBE BURCH Location:[facility] Registration Date and Time:04/10/2023 05:51 EDT Primary Care Physician: Shelley Lal NP, Attending Physician: Sami Garcia MD, I PHOEBE BURCH, have received the above patient education materials/instructions and have verbalized understanding. If ambulance or transport services are being used I further acknowledge being given a choice of service. ?? If you need to contact me, please call me at this number: . Patient/Tangled Yarn Worker Name: Patient/Tangled Yarn Worker Signature: Relationship to Patient: Witness Name/Signature: Date: * Мария Gil RN: PERFORM, SIGN, VERIFY Event Display: Patient Education Handout Authored Date: [id number] * Мария Gil RN: PERFORM Event Display: Patient Education Leaflets Authored Date: [id number] Surgery Leg Bag and Andrade Catheter Care Discharge Instructions ?? 294 Leg Bag and Care of Your Andrade Catheter ?? To keep the area clean, you should clean the catheter and the area where it enters your body with soap and water 3 times a day and as needed. ?? Make sure the catheter is securely attached to your thigh to prevent pulling and possible irritation of the urethra and bladder. ?? If you are using a leg bag, do not attach the rubber straps too tightly.?? Remember to check the skin around your leg for irritation. ?? Make sure tubing is not kinked so urine can flow freely.?? Empty the drainage bag regularly, leg bags should be emptied when they are 1/3 to ?? full and night bags at least every 8 hours, more frequently as needed. ?? Always keep the drainage bag lower than the level of your bladder. Keep night bags off the floor atall times to prevent contamination of the urine. ?? It is usually safest to hang the drainage bag on the outside of a small wastebasket.?? This prevents people and pets from tripping on the tubing if they walk by you. ?? Clean the drain ports an connection sites of the catheter and drainage bag with alcohol wipes when changing from leg bag to night bag and from night bag to leg bag. ?? Wash drainage bags (when not in use) with warm soapy water and rinse well.?? Allow to air dry completely, then reapply caps to ends to keep the bags clean until next use.?? Bags may be rinsed with vinegar and water to help remove odor when necessary. ?? Don???t hesitate to call your doctor or the unit you were discharged from if you have any questions. ? * Мария Gil RN: PERFORM Event Display: Patient Education Leaflets Authored Date: [id number] Andrade Catheter Care ?? [id number] Andrade Catheter Care A Andrade catheter is a rubber tube that is placed through the urethra and into the bladder. The urethra is the opening where urine comes out. The catheter helps drain urine from the bladder. There is a small balloon on the end of the tube that is inflated after the catheter is put in place. This keeps the catheter from sliding out of the bladder. A Andrade catheter is used when you are unable to pass urine (urinary retention). It's also used whenthere is loss of bladder control (incontinence). It's also used after bladder or prostate surgery. Home care ??? Finish taking any prescribed antibiotic medicine even if you are feeling better before then. ??? It's important to keep bacteria from getting into the collection bag. Don't disconnect the catheter from the collection bag. ??? Use a leg band to secure the drainage tube, so it doesn't pull on the catheter. ??? Don't try to pull or remove your catheter. This will injure your urethra. It must be removed by your healthcare provider or nurse. ??? Drain the collection bag when it becomesfull using the drain spout at the bottom of the bag. ?? Follow-up care Follow up with your healthcare provider, or as advised. This is for repeat urine testing and for catheter removal or replacement. ?? When to seek medical advice Call your healthcare provider right away if any of these occur: ??? Fever of 100.4??F (38??C) or higher, or as directed by your healthcare provider ??? Bladder pain or fullness ??? Abdominal swelling, nausea or vomiting, or back pain ??? Blood or urine leakage around the catheter ??? Bloody urine coming from the catheter (if a new symptom) ??? Catheter falls out ??? Catheter stops draining for 6 hours ??? Weakness, dizziness, or fainting ?? Last Reviewed Date: 2021 ?? [employer]. All rights reserved. This information is not intended as a substitute for professional medical care. Always follow your healthcare professional's instructions. ?? * Мария Gil RN: PERFORM Event Display: Patient Education Leaflets Authored Date: [id number] Surgery Medical Daystay Surgical Overnight Discharge Instructions ?? 295 Medical Daystay/Surgical Overnight Discharge Instructions ? Since your coordination and judgment may be altered by medication and/or anesthesia, a responsible adult must drive you home from the hospital. ? If you have received medication for pain or sedation while under our care, you should not drive, operate machinery, drink alcohol, or sign any legal documents for 24 hours.?? You should have someone with you at home tonight. ? Remain at home the day of discharge.?? You may be up and about unless otherwise instructed by your physician. ? You may resume your daily prescription medication schedule.?? Any depressant medication should be avoided for 24 hours unless otherwise instructed by your surgeon or anesthesiologist. ? Call your physician for a follow-up appointment.? If you experience unusual or severe pain not relied by your pain medication, excessive bleedingor drainage, persistent nausea and vomiting, excessive swelling or redness, foul odor from incisionsite or fever over 100.6F, you need to call your physician. ? A follow-up phone call by a nurse will be made the day after your procedure.?? If you have stayed with us over night, you will not be receiving a follow-up phone call. ? Nausea and vomiting are a common side effect of prescription pain medication.?? We recommend that pills are not taken on an empty stomach.?? While taking any prescription pain medication you should not drive or drink alcohol. ? Patient Care team information Care Team Personnel Name: Shelley Lal NP Position: [facility] Associate Professional Member Role: PCP Address: Address: [address] [place] [address], [address] [place] [address]- Care Team Related Persons Name: BASILIO MALCOLM Address: home [address] [place] [address] Name: DAKOTA GUZMAN Address: home [address] [address] Name: SUDHA BOSWELL Address: home [address] [place] [id number]
--- OUTSIDE RECORDS SUMMARY | 2024-01-06 23:44 | XMS_ITS | Continuity of Care Document ---
Author Name Unknown Organization [facility] Adult Address [address] [place] [address]- Care Team Providers Care Internal Audit Manager Name Role Phone Ehsan VALLECILLO, Priyanka Martin Primary Care Physician Encounter [facility] Date(s): 04/21/21 - 05/21/21 [facility] Adult [address] [place] [address]- Allergies, Adverse Reactions, Alerts Substance Reaction Severity Status NKA Active Immunizations Given and Recorded Vaccine Date Status Refusal Reason SARS-CoV-2 (COVID-19) mRNA BNT-162b2 vac 04/11/21 Recorded SARS-CoV-2 (COVID-19) mRNA BNT-162q5 vac 03/21/21 Recorded influenza virus vaccine, inactivated [...] Maintenance,02/10/21 9:06:00 EDT, Route to Pharmacy Electronically, [facility]/pharmacy #[id number], dose increase, 151.7, cm, 07/18/20 17:52:00 EDT, [...]
[2024-01-07 00:34] LABS: COVID-19 Test Negative (Negative); IDNOW Serial# 08D9AD1C; IDNOW Serial# 152EDE1D; Influenza A Negative (Negative); Influenza B2 Negative (Negative)
[2024-01-07] MEDS: Acetaminophen 325 MG TABLET 975 MG PO (01:00)
[2024-01-07 01:01] VITALS: BP 144/83; PULSE 60; RESP 16; O2SAT 98
== END 2024-01-07 01:16 | disposition home or self-care (01) ==
PROVIDERS: Physician Assistant Medical; Emergency Provider Student in an Organized Health Care Education/Training Program; PCP Student in an Organized Health Care Education/Training Program
DX: R25.3 Fasciculation (principal); R11.2 Nausea with vomiting, unspecified; R51.9 Headache, unspecified; I49.9 Cardiac arrhythmia, unspecified; H57.89 Other specified disorders of eye and adnexa; Z11.52 Encounter for screening for COVID-19; Z79.899 Other long term (current) drug therapy
CPT/HCPCS: 36415; 80053; 81001; 81003; 83735; 84443; 84484; 85025; 85610; 85730; 87086; 87502; 87635; 93005; 99284

== ENCOUNTER → 2024-01-06 17:46 | Outpatient (BNV) | payer OTHER, SELFPAY | PROVIDERS: Emergency Provider Student in an Organized Health Care Education/Training Program; PCP Student in an Organized Health Care Education/Training Program; Visit Provider Internal Medicine Cardiovascular Disease | DX: R51.9 Headache, unspecified (principal) | CPT/HCPCS: 93010 ==